=== PATIENT | male | born 1970 | race Caucasian/White ===

== ENCOUNTER 2019-12-17 17:51 | Emergency (ER) | payer MEDICAID ==
[~2019-12-17 17:51] MED LIST: CLIN150C2 PO; HYDR-4353 PO; IBUP-812 PO; LISI-222 PO; METH500T PO; NO HOME MEDS
== END 2019-12-17 19:15 | disposition left against medical advice (07) ==
LOC: ER 17:52
DX: K92.1 Melena (principal); Z53.21 Procedure and treatment not carried out due to patient leaving prior to being seen by health care provider

== ENCOUNTER 2019-12-19 04:23 | Emergency (ER) | payer BC, MEDICAID ==
[~2019-12-19] VITALS: Ht 172.7 cm; Wt 86.0 kg
[2019-12-19] MEDS ORDERED: morphine 4 MG/ML inj SYRINge IV PRN (05:05)
[2019-12-19] MEDS ORDERED: normal saline 1000ML IV soln IVB ONE ×2 (05:05→06:15)
[2019-12-19] MEDS ORDERED: ondansetron/PF 4mg/2ml inj IV ONE (05:05)
[2019-12-19] MEDS ORDERED: methylnaltrexone br 12mg/0.6ml inj***SubQ only SQ ONE (06:10)
[2019-12-19 06:14] LABS: BASOPHILS # (AUTO) 0.1 X10'3 (0-0.2); BASOPHILS % (AUTO) 1.2 % (0-1); EOSINOPHILS # (AUTO) 0.3 X10'3 (0-0.9); EOSINOPHILS % (AUTO) 2.9 % (0-6); HEMATOCRIT 36.2 % (42.0-52.0); HEMOGLOBIN 12.5 g/dl (14.0-17.9); LYMPHOCYTES % (AUTO) 30.4 % (21-51); MEAN CORPUSCULAR HEMOGLOBIN 31.4 PG (27.0-31.0); MEAN CORPUSCULAR HGB CONC 34.4 g/dL (33.0-36.5); MEAN CORPUSCULAR VOLUME 91.1 FL (78-98); MEAN PLATELET VOLUME 9.7 FL (7.4-10.4); MONOCYTES # (AUTO) 0.8 X10'3 (0-0.9); MONOCYTES % (AUTO) 8.2 % (2-12); NEUTROPHILS # (AUTO) 5.6 X10'3 (1.8-7.7); NEUTROPHILS % (AUTO) 57.3 % (42-75); PLATELET COUNT 185 X10'3 (140-440); RED BLOOD COUNT 3.97 X10'6 (4.70-6.10); RED CELL DISTRIBUTION WIDTH 13.7 % (11.5-14.5); WHITE BLOOD COUNT 9.8 X10'3 (4.5-11.0)
[2019-12-19 06:30] LABS: ALANINE AMINOTRANSFERASE 23 U/L (12-78); ALBUMIN 3.8 G/DL (3.4-5.0); ALBUMIN/GLOBULIN RATIO 1.1 (1.1-1.5); ALKALINE PHOSPHATASE 81 IU/L (46-116); ANION GAP 8 (8-16); ASPARTATE AMINO TRANSFERASE 14 U/L (10-37); BILIRUBIN,TOTAL 0.2 MG/DL (0.1-1.0); BLOOD UREA NITROGEN 16 MG/DL (7-18); BUN/CREATININE RATIO 17.6 (5.4-32.0); CALCIUM 8.9 MG/DL (8.5-10.1); CHLORIDE 109 MMOL/L (99-107); CREATININE 0.91 MG/DL (0.60-1.10); GLUCOSE 93 MG/DL (70-104); LIPASE 117 U/L (73-393); POTASSIUM 3.9 MMOL/L (3.5-5.1); SODIUM 143 MMOL/L (135-145); TOTAL CARBON DIOXIDE 26.1 MMOL/L (24-32); TOTAL PROTEIN 7.3 G/DL (6.4-8.2); eGFR 89 ML/MIN
[2019-12-19] MEDS ORDERED: CIPR-230 PO (06:38)
[2019-12-19] MEDS ORDERED: METR-159 PO (06:38)
[2019-12-19 07:07] VITALS: BP 134/93
[2019-12-19 11:30] LABS: OCCULT BLOOD STOOL NEGATIVE (Neg)
== END 2019-12-19 07:08 | disposition home or self-care (01) ==
LOC: ER 04:23
DX: K59.00 Constipation, unspecified (principal); K62.5 Hemorrhage of anus and rectum; I25.10 Atherosclerotic heart disease of native coronary artery without angina pectoris; I10 Essential (primary) hypertension; I25.2 Old myocardial infarction; Z98.890 Other specified postprocedural states; Z88.6 Allergy status to analgesic agent; Z79.899 Other long term (current) drug therapy
CPT/HCPCS: 36415; 74176; 80053; 82272; 83690; 85025; 96372; 96374; 96375; 99284; J2212; J2270; J2405; J7030

== ENCOUNTER 2020-03-10 12:23 | Emergency (ER) | payer BC, MEDICAID ==
[~2020-03-10] VITALS: Ht 172.7 cm; Wt 90.0 kg
[2020-03-10] MEDS ORDERED: PRED20TA PO (13:05)
[2020-03-10] MEDS ORDERED: HYDR28CR14 TOP (13:05)
[2020-03-10 13:11] VITALS: BP 128/88
== END 2020-03-10 13:12 | disposition home or self-care (01) ==
LOC: ER 12:23
DX: L23.9 Allergic contact dermatitis, unspecified cause (principal); R21 Rash and other nonspecific skin eruption; I25.10 Atherosclerotic heart disease of native coronary artery without angina pectoris; I10 Essential (primary) hypertension; I25.2 Old myocardial infarction; Z98.890 Other specified postprocedural states; Z88.6 Allergy status to analgesic agent; Z79.2 Long term (current) use of antibiotics; Z79.899 Other long term (current) drug therapy
CPT/HCPCS: 99283

== ENCOUNTER 2020-10-08 13:11 | Emergency (ER) | payer BC, MEDICAID ==
[~2020-10-08] VITALS: Ht 172.7 cm; Wt 84.7 kg
[~2020-10-08 13:11] MED LIST changes: +HYDR28CR14 TOP
[2020-10-08 13:19] VITALS: BP 158/111
[2020-10-08] MEDS ORDERED: ketorolac tromethamine 15mg/ml inj. IM ONE (14:35)
[2020-10-08] MEDS ORDERED: HYDR-4383 PO (15:28)
[2020-10-08] MEDS ORDERED: ONDA4TAB6 PO (15:28)
== END 2020-10-08 15:38 | disposition home or self-care (01) ==
LOC: ER 13:11
DX: S20.212A Contusion of left front wall of thorax, initial encounter (principal); I25.10 Atherosclerotic heart disease of native coronary artery without angina pectoris; I10 Essential (primary) hypertension; Z98.890 Other specified postprocedural states; Z79.2 Long term (current) use of antibiotics; Z79.899 Other long term (current) drug therapy; Z88.6 Allergy status to analgesic agent; W01.0XXA Fall on same level from slipping, tripping and stumbling without subsequent striking against object, initial encounter; Y93.89 Activity, other specified; Y92.89 Other specified places as the place of occurrence of the external cause; Y99.8 Other external cause status
CPT/HCPCS: 71046; 96372; 99283; J1885

== ENCOUNTER 2021-01-20 12:29 | Inpatient (IN) | payer BC, MEDICAID ==
[2021-01-20] VITALS (8 sets, daily range): BP systolic 128–172; BP diastolic 89–116
[~2021-01-20] VITALS: Ht 172.7 cm; Wt 84.5 kg
[~2021-01-20 12:29] MED LIST changes: +HYDR-4383 PO; +ONDA4TAB6 PO
--- NOTE | 2021-01-20 13:20 | NUR ---
DR. CHOI AT BEDSIDE.
[2021-01-20 13:28] LABS: BASOPHILS # (AUTO) 0.1 X10'3 (0-0.2); BASOPHILS % (AUTO) 1.3 % (0-1); EOSINOPHILS # (AUTO) 0.3 X10'3 (0-0.9); EOSINOPHILS % (AUTO) 4.2 % (0-6); HEMATOCRIT 41.4 % (42.0-52.0); HEMOGLOBIN 13.9 g/dl (14.0-17.9); LYMPHOCYTES # (AUTO) 2.3 X10'3 (1.1-4.8); LYMPHOCYTES % (AUTO) 35.2 % (21-51); MEAN CORPUSCULAR HEMOGLOBIN 31.1 PG (27.0-31.0); MEAN CORPUSCULAR HGB CONC 33.5 g/dL (33.0-36.5); MEAN CORPUSCULAR VOLUME 92.9 FL (78-98); MEAN PLATELET VOLUME 9.3 FL (7.4-10.4); MONOCYTES # (AUTO) 0.7 X10'3 (0-0.9); MONOCYTES % (AUTO) 9.9 % (2-12); NEUTROPHILS # (AUTO) 3.3 X10'3 (1.8-7.7); NEUTROPHILS % (AUTO) 49.4 % (42-75); PLATELET COUNT 221 X10'3 (140-440); RED BLOOD COUNT 4.46 X10'6 (4.70-6.10); RED CELL DISTRIBUTION WIDTH 13.4 % (11.5-14.5); WHITE BLOOD COUNT 6.7 X10'3 (4.5-11.0)
[2021-01-20] MEDS ORDERED: heparin 10,000 units/1 ML INJ IV ONE ×2 (13:30→13:35)
[2021-01-20] MEDS ORDERED: aspirin 81mg tab.chew PO ONE (13:30)
[2021-01-20] MEDS ORDERED: acetaminophen 325mg tablet PO ONE (13:35)
[2021-01-20 13:41] LABS: ALANINE AMINOTRANSFERASE 59 U/L (12-78); ALBUMIN/GLOBULIN RATIO 1.1 (1.1-1.5); ALKALINE PHOSPHATASE 111 IU/L (46-116); ANION GAP 14 (8-16); ASPARTATE AMINO TRANSFERASE 40 U/L (10-37); BILIRUBIN,TOTAL 0.2 MG/DL (0.1-1.0); BLOOD UREA NITROGEN 12 MG/DL (7-18); BUN/CREATININE RATIO 12.4 (5.4-32.0); CALCIUM 9.2 MG/DL (8.5-10.1); CHLORIDE 104 MMOL/L (99-107); CREATININE 0.97 MG/DL (0.60-1.10); GLUCOSE 96 MG/DL (70-104); POTASSIUM 4.1 MMOL/L (3.5-5.1); SODIUM 142 MMOL/L (135-145); TOTAL PROTEIN 7.7 G/DL (6.4-8.2); eGFR 82 ML/MIN
[2021-01-20 13:48] LABS: PARTIAL THROMBOPLASTIN TIME 23 SECONDS (22-32)
[2021-01-20] MEDS: nitroGLYCERIN 0.4mg SUBLingual tab SL PRN ×2 (14:03→14:13)
[2021-01-20] MEDS ORDERED: heparin 10,000 units/1 ML INJ IV PRN (14:10)
[2021-01-20] MEDS ORDERED: heparin 25,000 UNIT/250ml bag 250 ML IV SCH (14:10)
--- NOTE | 2021-01-20 14:11 | NUR ---
PT REPORTS NO CHANGE IN CP AFTER FIRST NITRO SL.
[2021-01-20] MEDS ORDERED: LISI40TA13 PO (14:18)
[2021-01-20] MEDS ORDERED: morphine 10mg/ml inj. IV ONE ×2 (14:40→15:50)
[2021-01-20] MEDS ORDERED: magnesium 4gm in 100ml NS 100 ML IV PRN (15:55)
[2021-01-20] MEDS ORDERED: potassium Cl 20 mEq SR tablet PO PRN ×2 (15:55)
[2021-01-20] MEDS ORDERED: potassium Cl 40MEQ/1/2NS 520ml 520 ML IV PRN ×2 (15:55)
[2021-01-20] MEDS ORDERED: HYDROcodone/acetaminophen 5mg/325mg tablet PO PRN ×2 (15:55→20:00)
[2021-01-20] MEDS ORDERED: magnesium 2GM in 50ml NS 50 ML IV PRN (15:55)
[2021-01-20] MEDS ORDERED: magnesium Cl slow-release 64mg tablet PO PRN (15:55)
[2021-01-20] MEDS ORDERED: ondansetron/PF 4mg/2ml inj IV PRN ×2 (15:55→20:00)
[2021-01-20] MEDS ORDERED: acetaminophen 325mg tablet PO PRN (15:55)
--- NOTE | 2021-01-20 17:02 | NUR ---
PTT ORDERED FOR 2100
[2021-01-20] MEDS: morphine 2 MG/ML inj. syringe IV PRN (17:28)
--- NOTE | 2021-01-20 17:30 | NUR ---
Patient arrived to floor vitals temp 98, BP 138/104, HR 80, RR 18, O2 96% RA , pain 8. dental lab technician notified of BP no orders
[2021-01-20] MEDS ORDERED: nitroGLYCERIN-Tridil 50MG/D5W 250 ML IV ONE (17:51)
[2021-01-20] MEDS ORDERED: midazolam 1 mg/ML 2ml injection ONE ×3 (17:51→18:41)
[2021-01-20] MEDS ORDERED: verapamil 2.5 mg/ml inj IV ONE (17:51)
[2021-01-20] MEDS ORDERED: iohexol 350MG/ML 100ml bottle IV ONE ×2 (17:52→18:54)
[2021-01-20] MEDS ORDERED: LIDOcaine 1% (10mg/ml)w/preservative injection 20ml MDV ONE (17:52)
[2021-01-20] MEDS ORDERED: fentaNYL/PF 50MCG/1 ML 2ML syringe ONE (17:52)
[2021-01-20] MEDS ORDERED: heparin 1,000unit/ml 10ml vial 10 ML ONE (17:52)
--- NOTE | 2021-01-20 18:00 | NUR ---
Patient in room PCU 3023. I have received report from Jamilah VILLANUEVA and had the opportunity to ask questions and assume patient care. Shortly the patient was taken to label maker.
--- NOTE | 2021-01-20 18:27 | NUR ---
Problems reprioritized. Patient report given, questions answered & plan of care reviewed with Melba VILLANUEVA.
[2021-01-20] MEDS ORDERED: ticagrelor 90mg tablet ONE (19:16)
[2021-01-20] MEDS: K and/or MAG REPLACEMENT MC SCH (20:00)
[2021-01-20] MEDS ORDERED: OXAZEpam 15mg capsule PO PRN (20:00)
[2021-01-20] MEDS ORDERED: nitroGLYCERIN 0.4mg SUBLingual tab SL PRN (20:00)
[2021-01-20] MEDS ORDERED: proCHLORperazine 10 MG/2 ml inj IV PRN (20:00)
[2021-01-20] MEDS ORDERED: ticagrelor 90mg tablet PO SCH (20:00)
[2021-01-21] MEDS: morphine 2 MG/ML inj. syringe IV PRN (00:27)
[2021-01-21 02:00] VITALS: BP 166/100
[2021-01-21] MEDS: HYDROcodone/acetaminophen 10/325mg tab PO PRN ×2 (03:16→07:19)
--- NOTE | 2021-01-21 06:20 | NUR ---
Patient in room PCU 3023. I have received report from Oriana VILLANUEVA and had the opportunity to ask questions and assume patient care.
--- NOTE | 2021-01-21 06:24 | NUR ---
Problems reprioritized. Patient report given, questions answered & plan of care reviewed with Anshu VILLANUEVA.
--- NOTE | 2021-01-21 06:28 | NUR ---
Patient in room PCU 3023. I have received report from KAY Johnson and had the opportunity to ask questions and assume patient care.
[2021-01-21 06:50] LABS: ALBUMIN 3.5 G/DL (3.4-5.0); ANION GAP 9 (8-16); BLOOD UREA NITROGEN 15 MG/DL (7-18); BUN/CREATININE RATIO 16.5 (5.4-32.0); CHLORIDE 106 MMOL/L (99-107); CREATININE 0.91 MG/DL (0.60-1.10); GLUCOSE 99 MG/DL (70-104); POTASSIUM 4.3 MMOL/L (3.5-5.1); SODIUM 141 MMOL/L (135-145); TOTAL CARBON DIOXIDE 26.3 MMOL/L (24-32); eGFR 89 ML/MIN
[2021-01-21 06:54] LABS: BASOPHILS # (AUTO) 0.1 X10'3 (0-0.2); BASOPHILS % (AUTO) 1.4 % (0-1); EOSINOPHILS # (AUTO) 0.3 X10'3 (0-0.9); EOSINOPHILS % (AUTO) 4.4 % (0-6); HEMATOCRIT 39.6 % (42.0-52.0); HEMOGLOBIN 13.4 g/dl (14.0-17.9); LYMPHOCYTES # (AUTO) 1.8 X10'3 (1.1-4.8); LYMPHOCYTES % (AUTO) 31.2 % (21-51); MEAN CORPUSCULAR HEMOGLOBIN 31.5 PG (27.0-31.0); MEAN CORPUSCULAR VOLUME 92.7 FL (78-98); MEAN PLATELET VOLUME 9.2 FL (7.4-10.4); MONOCYTES # (AUTO) 0.6 X10'3 (0-0.9); MONOCYTES % (AUTO) 10.7 % (2-12); NEUTROPHILS % (AUTO) 52.3 % (42-75); PLATELET COUNT 196 X10'3 (140-440); RED BLOOD COUNT 4.27 X10'6 (4.70-6.10); RED CELL DISTRIBUTION WIDTH 13.2 % (11.5-14.5); WHITE BLOOD COUNT 5.8 X10'3 (4.5-11.0)
[2021-01-21 07:00] VITALS: BP 155/112
[2021-01-21] MEDS: K and/or MAG REPLACEMENT MC SCH (07:58)
[2021-01-21] MEDS ORDERED: aspirin 81mg tablet.DR PO SCH (08:00)
[2021-01-21] MEDS ORDERED: lisinopril 20mg tablet PO SCH (08:00)
[2021-01-21] MEDS ORDERED: ticagrelor 90mg tablet PO SCH (08:00)
[2021-01-21 11:00] VITALS: BP 140/91
[2021-01-21] MEDS ORDERED: metoprolol tartrate 12.5mg (1/2 tablet) PO SCH (12:00)
[2021-01-21] MEDS ORDERED: LOP25T PO (12:07)
[2021-01-21] MEDS ORDERED: TICA90TA PO (12:07)
[2021-01-21] MEDS ORDERED: BEMP180T PO (12:07)
[2021-01-21 12:15] LABS: CHOLESTEROL 232 MG/DL (0-200); HDL CHOLESTEROL 33 MG/DL (35-60); LDL CHOLESTEROL 127 MG/DL (50-100); TRIGLYCERIDES 399 MG/DL (20-135)
[2021-01-21 12:20] VITALS: BP_SYST 140
--- NOTE | 2021-01-21 13:20 | NUR ---
Patient is stable for discharge per MD orders. All discharge instructions reviewed with patient and all questions answered. Patient will make follow-up appointment with PCP and mate fishing vessel. New prescriptions called in to pharmacy. PIV discontinued, cannula intact. traffic monitor specialist discontinued. All belongings collected and sent with patient. Patient was wheeled to lobby, accompanied by daughter. Patient was put into private vehicle.
--- NOTE | 2021-01-21 13:20 | NUR ---
Orientee documentation: I have reviewed and agree with all interventions, assessments performed and documented by David Macias RN.
--- NOTE | 2021-01-22 15:18 | NUR ---
CASE MANAGEMENT DISCHARGE FOLLOW UP: T/c to pt, no answer, left message requesting callback.
== END 2021-01-21 13:24 | disposition home or self-care (01) | DRG 247 ==
LOC: ER 12:30 → ED HOLD 15:53 → PCU 3S 17:05
PROVIDERS: ADMIT Internal Medicine; ATTEND Internal Medicine
PROC: 4A023N7 Measurement of Cardiac Sampling and Pressure, Left Heart, Percutaneous Approach (ICD-10-PCS; principal; 2021-01-20)
PROC: 027035Z Dilation of Coronary Artery, One Artery with Two Drug-eluting Intraluminal Devices, Percutaneous Approach (ICD-10-PCS; 2021-01-20)
PROC: B2111ZZ Fluoroscopy of Multiple Coronary Arteries using Low Osmolar Contrast (ICD-10-PCS; 2021-01-20)
PROC: B2151ZZ Fluoroscopy of Left Heart using Low Osmolar Contrast (ICD-10-PCS; 2021-01-20)
DX: I21.4 Non-ST elevation (NSTEMI) myocardial infarction (principal); K50.90 Crohn's disease, unspecified, without complications; I10 Essential (primary) hypertension; E78.5 Hyperlipidemia, unspecified; I25.2 Old myocardial infarction; Z82.49 Family history of ischemic heart disease and other diseases of the circulatory system; Z95.5 Presence of coronary angioplasty implant and graft; I25.10 Atherosclerotic heart disease of native coronary artery without angina pectoris
CPT/HCPCS: 93306; 93458; 96365; 96375; 99291; C9600; 36415; 71045; 80048; 80053; 80061; 83735; 83880; 84484; 85025; 85610; 85730; 87081; 93005; 93308; 99152; 99153; A4620; C1725; C1751; C1769; C1874; C1894; G0378; J1644; J2001; J2250; J2270; J3010; J3490; J7030; Q9967

== ENCOUNTER 2021-01-27 09:55 | Inpatient (IN) | payer BC, MEDICAID ==
[2021-01-27] VITALS (14 sets, daily range): BP systolic 112–184; BP diastolic 66–118
[~2021-01-27] VITALS: Ht 175.3 cm; Wt 89.8 kg
[~2021-01-27 09:55] MED LIST changes: +BEMP180T PO; -CLIN150C2 PO; -HYDR-4353 PO; -HYDR-4383 PO; -HYDR28CR14 TOP; -IBUP-812 PO; -LISI-222 PO; +LISI40TA13 PO; +LOP25T PO; -METH500T PO; -NO HOME MEDS; -ONDA4TAB6 PO; +TICA90TA PO
[2021-01-27] MEDS ORDERED: morphine 4 MG/ML inj SYRINge IV ONE ×2 (10:05→13:45)
[2021-01-27] MEDS ORDERED: morphine 4 MG/ML inj SYRINge IM ONE (10:05)
[2021-01-27 10:13] LABS: BASOPHILS # (AUTO) 0.1 X10'3 (0-0.2); BASOPHILS % (AUTO) 0.6 % (0-1); EOSINOPHILS # (AUTO) 0.3 X10'3 (0-0.9); EOSINOPHILS % (AUTO) 1.3 % (0-6); HEMATOCRIT 48.3 % (42.0-52.0); HEMOGLOBIN 16.1 g/dl (14.0-17.9); LYMPHOCYTES % (AUTO) 13.3 % (21-51); MEAN CORPUSCULAR HEMOGLOBIN 31.1 PG (27.0-31.0); MEAN CORPUSCULAR HGB CONC 33.3 g/dL (33.0-36.5); MEAN CORPUSCULAR VOLUME 93.2 FL (78-98); MEAN PLATELET VOLUME 9.5 FL (7.4-10.4); MONOCYTES # (AUTO) 1.9 X10'3 (0-0.9); MONOCYTES % (AUTO) 8.2 % (2-12); NEUTROPHILS # (AUTO) 17.3 X10'3 (1.8-7.7); NEUTROPHILS % (AUTO) 76.6 % (42-75); PLATELET COUNT 311 X10'3 (140-440); RED BLOOD COUNT 5.18 X10'6 (4.70-6.10); RED CELL DISTRIBUTION WIDTH 13.3 % (11.5-14.5); WHITE BLOOD COUNT 22.6 X10'3 (4.5-11.0)
[2021-01-27] MEDS ORDERED: midazolam 1 mg/ML 2ml injection ONE (10:13)
[2021-01-27] MEDS ORDERED: iohexol 350 MG/ML 50ML vial IV ONE ×2 (10:13→11:16)
[2021-01-27] MEDS ORDERED: heparin 1,000unit/ml 10ml vial 10 ML ONE (10:13)
[2021-01-27] MEDS ORDERED: LIDOcaine 1% (10mg/ml)w/preservative injection 20ml MDV ONE ×2 (10:13→15:05)
[2021-01-27] MEDS ORDERED: iohexol 350 MG/1 ML 200ml bottle ONE ×2 (10:13→10:54)
[2021-01-27] MEDS ORDERED: fentaNYL/PF 50MCG/1 ML 2ML syringe ONE (10:13)
[2021-01-27] MEDS ORDERED: nitroGLYCERIN-Tridil 50MG/D5W 250 ML IV ONE (10:14)
[2021-01-27 10:26] LABS: PARTIAL THROMBOPLASTIN TIME 24 SECONDS (22-32)
[2021-01-27 10:29] LABS: ALANINE AMINOTRANSFERASE 102 U/L (12-78); ALBUMIN 4.5 G/DL (3.4-5.0); ALBUMIN/GLOBULIN RATIO 1.1 (1.1-1.5); ALKALINE PHOSPHATASE 120 IU/L (46-116); ANION GAP 17 (8-16); ASPARTATE AMINO TRANSFERASE 36 U/L (10-37); BILIRUBIN,TOTAL 0.4 MG/DL (0.1-1.0); BLOOD UREA NITROGEN 24 MG/DL (7-18); BUN/CREATININE RATIO 16.6 (5.4-32.0); CALCIUM 10.4 MG/DL (8.5-10.1); CHLORIDE 101 MMOL/L (99-107); CREATININE 1.45 MG/DL (0.60-1.10); GLUCOSE 163 MG/DL (70-104); SODIUM 140 MMOL/L (135-145); TOTAL CARBON DIOXIDE 22.4 MMOL/L (24-32); TOTAL PROTEIN 8.6 G/DL (6.4-8.2); eGFR 52 ML/MIN
[2021-01-27 10:36] LABS: MAGNESIUM 2.3 MG/DL (1.5-2.4)
[2021-01-27 10:44] LABS: POTASSIUM 3.8 MMOL/L (3.5-5.1)
[2021-01-27] MEDS ORDERED: metoprolol tartrate 1mg/ml inj IV ONE ×2 (10:46→20:10)
[2021-01-27] MEDS ORDERED: tirofiban 5mg in NS 100mL 100 ML IV ONE ×2 (10:54→13:46)
[2021-01-27] MEDS ORDERED: ondansetron/PF 4mg/2ml inj ONE (10:55)
[2021-01-27] MEDS ORDERED: ticagrelor 90mg tablet ONE (11:32)
[2021-01-27] MEDS ORDERED: normal saline 1000ml 1,000 ML IV SCH (12:10)
[2021-01-27] MEDS ORDERED: acetaminophen 325mg tablet PO PRN ×2 (12:15)
[2021-01-27] MEDS ORDERED: HYDROcodone/acetaminophen 10/325mg tab PO PRN (12:15)
[2021-01-27] MEDS ORDERED: proCHLORperazine 10 MG/2 ml inj IV PRN (12:15)
[2021-01-27] MEDS ORDERED: aspirin 81mg tab.chew PO ONE (12:15)
[2021-01-27] MEDS ORDERED: magnesium hydroxide 30ml (MOM) UD suspension PO PRN (12:15)
[2021-01-27] MEDS: lisinopril 5mg tablet PO SCH (12:21)
[2021-01-27] MEDS: HYDROcodone/acetaminophen 10/325mg tab PO PRN ×3 (12:24→20:38)
--- NOTE | 2021-01-27 12:40 | NUR ---
Received pt. from cardiac cath lab technologist at 1200. Right groin sheath in place. Pt. to have ACT drawn and sheath pulled at 1500. Heparin to turn off at 1500.
[2021-01-27] MEDS: OXAZEpam 15mg capsule PO PRN ×2 (12:59→22:44)
--- NOTE | 2021-01-27 14:34 | NUR ---
Dr. Tran saw pt. earlier. Stated to have pt.s home "statin" medicine brought in and he will order it to be given. Dr. Osuna called. RN notified him of WBC count, Troponin critical value and BUN/Cr. Orders received.
[2021-01-27] MEDS: acetylcysteine 200 MG/ml 4ml vial PO SCH ×2 (15:06→20:25)
[2021-01-27] MEDS: cyclobenzaprine 10mg tablet PO PRN (15:06)
[2021-01-27] MEDS: sodium bicarbonate (8.4%) inj. 75 MEQ in sodium chloride 0.45% 500ml 500 ML IV SCH ×2 (15:06→20:20)
--- NOTE | 2021-01-27 15:19 | NUR ---
[facility] cardiac cath lab technologist nurse here to perform ACT and pull right groin sheath is ACT is WNL.
[2021-01-27 16:15] LABS: PLATELET FUNCTION (ADP) > 300 SECONDS (63-104)
[2021-01-27] MEDS ORDERED: BEMP180T PO (16:38)
[2021-01-27 17:03] LABS: CLARITY,URINE CLEAR (Clear); COLOR,URINE YELLOW (Yellow); GLUCOSE, URINE NEGATIVE (Neg); KETONES,URINE NEGATIVE (Neg); LEUKOCYTE ESTERASE ,URINE NEGATIVE (Neg); NITRITES, URINE NEGATIVE (Neg); OCCULT BLOOD,URINE NEGATIVE (Neg); PROTEIN,URINE NEGATIVE (Neg); UROBILINOGEN,URINE 0.2 E.U/dL (0.2-1.0)
--- NOTE | 2021-01-27 17:05 | NUR ---
Pt. threatening to leave AMA since his is not allowed to stay with him in the hospital. Charge nurse aware. Nursing supervisor telephone clerks Mary Carmen aware. Security here. Dr. Osuna paged to let him know. Message left with answering service.
[2021-01-27 17:08] LABS: UA COLLECTION TYPE NON-SPECIFIED
--- NOTE | 2021-01-27 17:12 | NUR ---
left stating "you guys really care about pt's feelings." Dr. Tran aware of situation.
--- NOTE | 2021-01-27 17:44 | NUR ---
Spoke with Dr. Osuna. Aware that pt. was threatening to leave AMA but ended up staying here. Aware of sheath pulled and hemostasis at right groin. Orders received for Restoril and Ativan.
[2021-01-27] MEDS: LORazepam 2 mg/ml vial IV PRN (17:58)
--- NOTE | 2021-01-27 18:14 | NUR ---
Problems reprioritized. Patient report given, questions answered & plan of care reviewed with Alexandra VILLANUEVA.
[2021-01-27] MEDS ORDERED: tirofiban 5mg in NS 100mL 100 ML IV SCH (18:15)
--- NOTE | 2021-01-27 18:30 | NUR ---
Patient in room ICU 2046. I have received report from Marie VILLANUEVA and had the opportunity to ask questions and assume patient care. Addendum: 01/27/21 at 2100 by Alexandra Szymanski RN Amended: Links added.
--- NOTE | 2021-01-27 18:46 | NUR ---
Dr. Osuna notified of patient's increased chest pain and hypertension. Orders received, EKG obtained.
[2021-01-27] MEDS ORDERED: nitroGLYCERIN-Tridil 50MG/D5W 250 ML IV PRN (18:50)
[2021-01-27] MEDS: morphine 2 MG/ML inj. syringe IV PRN ×2 (19:12→22:43)
[2021-01-27] MEDS: docusate sod 100mg capsule PO SCH (20:00)
[2021-01-27] MEDS ORDERED: morphine 2 MG/ML inj. syringe IV ONE (20:10)
--- NOTE | 2021-01-27 20:10 | NUR ---
Patient Sinus tach in the 140's. Dr. Osuna at bedside. Orders received.
[2021-01-27] MEDS: BEMPEDOIC ACID 180 MG PO SCH (20:25)
[2021-01-27] MEDS: atorvastatin 20mg tablet PO SCH (20:26)
[2021-01-27] MEDS: ticagrelor 90mg tablet PO SCH (20:37)
[2021-01-27] MEDS: temazepam 15mg capsule PO PRN (21:42)
[2021-01-28] VITALS (20 sets, daily range): BP systolic 96–143; BP diastolic 61–93
[2021-01-28] MEDS: metoprolol tartrate 1mg/ml inj IV PRN ×3 (01:36→22:22)
[2021-01-28] MEDS: sodium bicarbonate (8.4%) inj. 75 MEQ in sodium chloride 0.45% 500ml 500 ML IV SCH ×2 (02:05→03:39)
--- NOTE | 2021-01-28 03:25 | NUR ---
HR decreased p/Metoprolol. Patient appears to be sleeping. Will continue to monitor closely.
[2021-01-28] MEDS: HYDROcodone/acetaminophen 10/325mg tab PO PRN (03:40)
[2021-01-28 04:52] LABS: BASOPHILS # (AUTO) 0.1 X10'3 (0-0.2); BASOPHILS % (AUTO) 0.6 % (0-1); EOSINOPHILS % (AUTO) 0.2 % (0-6); HEMATOCRIT 39.8 % (42.0-52.0); HEMOGLOBIN 13.5 g/dl (14.0-17.9); LYMPHOCYTES # (AUTO) 2.3 X10'3 (1.1-4.8); LYMPHOCYTES % (AUTO) 16.3 % (21-51); MEAN CORPUSCULAR HEMOGLOBIN 30.9 PG (27.0-31.0); MEAN CORPUSCULAR VOLUME 90.9 FL (78-98); MONOCYTES # (AUTO) 1.4 X10'3 (0-0.9); MONOCYTES % (AUTO) 10.3 % (2-12); NEUTROPHILS # (AUTO) 10.1 X10'3 (1.8-7.7); NEUTROPHILS % (AUTO) 72.6 % (42-75); PLATELET COUNT 253 X10'3 (140-440); RED BLOOD COUNT 4.38 X10'6 (4.70-6.10); RED CELL DISTRIBUTION WIDTH 13.6 % (11.5-14.5); WHITE BLOOD COUNT 13.9 X10'3 (4.5-11.0)
[2021-01-28 05:07] LABS: ALBUMIN 3.5 G/DL (3.4-5.0); ANION GAP 13 (8-16); BLOOD UREA NITROGEN 18 MG/DL (7-18); BUN/CREATININE RATIO 16.8 (5.4-32.0); CALCIUM 8.5 MG/DL (8.5-10.1); CHLORIDE 103 MMOL/L (99-107); CREATININE 1.07 MG/DL (0.60-1.10); GLUCOSE 139 MG/DL (70-104); MAGNESIUM 1.9 MG/DL (1.5-2.4); POTASSIUM 3.9 MMOL/L (3.5-5.1); SODIUM 139 MMOL/L (135-145); TOTAL CARBON DIOXIDE 22.8 MMOL/L (24-32); eGFR 73 ML/MIN
[2021-01-28 05:09] LABS: TROPONIN I 33.57 NG/ML (0.0-0.05)
--- NOTE | 2021-01-28 06:24 | NUR ---
Problems reprioritized. Patient report given, questions answered & plan of care reviewed with Domonique VILLANUEVA.
--- NOTE | 2021-01-28 06:30 | NUR ---
Patient in room ICU 2046. I have received report from Alexandra VILLANUEVA and had the opportunity to ask questions and assume patient care.
[2021-01-28] MEDS: morphine 2 MG/ML inj. syringe IV PRN ×5 (06:53→20:42)
[2021-01-28] MEDS: acetylcysteine 200 MG/ml 4ml vial PO SCH ×2 (07:55→20:35)
[2021-01-28] MEDS: aspirin 81mg tab.chew PO SCH (07:55)
[2021-01-28] MEDS: ticagrelor 90mg tablet PO SCH ×2 (07:55→20:32)
[2021-01-28] MEDS: lisinopril 5mg tablet PO SCH (07:58)
[2021-01-28] MEDS: BEMPEDOIC ACID 180 MG PO SCH (08:00)
[2021-01-28] MEDS: docusate sod 100mg capsule PO SCH ×2 (08:00→20:40)
--- NOTE | 2021-01-28 09:00 | NUR ---
patient calm and sleeping. minimal complaints of pain.
--- NOTE | 2021-01-28 09:15 | NUR ---
patient's SBP in the 90s, titrated tridil drip down to off. Pt complaining of chest pain, SUPERVISORY EXAMINER at bedside. tridil dirp and sodium bicarbonate drip discontinued. New orders received.
[2021-01-28] MEDS: LORazepam 2 mg/ml vial IV PRN ×3 (09:18→23:03)
[2021-01-28] MEDS ORDERED: pneumococcal 23-VAL P-sac vacc 25 mcg/0.5ml vial IMVAC ONE (10:00)
[2021-01-28] MEDS ORDERED: LOP12.5T PO (11:29)
[2021-01-28] MEDS ORDERED: TICA90TA2 PO (11:29)
[2021-01-28] MEDS: OXAZEpam 15mg capsule PO PRN (13:51)
[2021-01-28] MEDS: cyclobenzaprine 10mg tablet PO PRN (14:43)
--- NOTE | 2021-01-28 14:50 | NUR ---
pt complaining of chest pain 7/10 morphine given. an hour later pain was slightly relieved. patient given norco and serax. 12 lead EKG performed. STEFANI Belle took EKG to geophysical laboratory director.
--- NOTE | 2021-01-28 15:00 | NUR ---
notified charge entry specialist and flexeril given.
--- NOTE | 2021-01-28 15:00 | NUR ---
patient has become more worked up and agitated since is at bedside. patient is more distressed and having more complaints of chest pain that is unrelieved from morphine, and norco. animal humane agent supervisor aware and Barbra STEAM OVEN OPERATOR aware.
[2021-01-28] MEDS ORDERED: HYDROmorphone inj. 0.5 MG/0.5 ML DISP.SYRIN IV ONE (15:05)
--- NOTE | 2021-01-28 15:46 | NUR ---
Report called to receiving nurseCesilia. Transferred via wheel chair with all Belongings: cell phone and hadoop admin. Special Issues communicated to receiving nurse.
--- NOTE | 2021-01-28 15:54 | NUR ---
Received report on patient. Pending patient to unit.
--- NOTE | 2021-01-28 16:06 | NUR ---
pt transferred to rm 308 with all belongings via wheel chair; VSS.
--- NOTE | 2021-01-28 16:21 | NUR ---
Report received from KAY Martinez - pt was able to transfer without assistance from W/C to bed. No c/o pain at this time. Monitoring.
--- NOTE | 2021-01-28 17:24 | NUR ---
Shift note: Pt is alert and oriented and can make his needs be known. Pt was able to transfer from W/C to bed when brought up from ICU. Pt still C/O chest pain but not as bad as before. HR still in 120's - PRN ativan administered with relief. Safety measures in place, bed in lowest position, call light within reach. Will continue to monitor until report given to NOC shift and NOC shift assumes care.
--- NOTE | 2021-01-28 18:40 | NUR ---
Patient in room MED 308. I have received report from Cesilia VILLANUEVA and had the opportunity to ask questions and assume patient care with Josue VILLANUEVA.
--- NOTE | 2021-01-28 18:42 | NUR ---
Problems reprioritized. Patient report given, questions answered & plan of care reviewed with Flaquito RN.
--- NOTE | 2021-01-28 19:20 | NUR ---
Dr. Recinos called regarding blood in stool Spoke with Dr. Jose Recinos regarding occult blood in stool. Doctor ordered stool sample to be collected and to continue Brillinta.
[2021-01-28] MEDS: metoprolol tartrate 25mg tablet PO SCH (20:32)
[2021-01-28] MEDS: atorvastatin 20mg tablet PO SCH (20:32)
[2021-01-29] MEDS: morphine 2 MG/ML inj. syringe IV PRN ×8 (00:20→19:49)
[2021-01-29 01:53] LABS: OCCULT BLOOD STOOL POSITIVE (Neg)
[2021-01-29 02:00] VITALS: BP 127/85
[2021-01-29 06:00] VITALS: BP 121/92
--- NOTE | 2021-01-29 06:00 | NUR ---
ORIENTEE documentation: I have reviewed and agree with all interventions, assessments performed and documented by AYSHA VILLANUEVA.
--- NOTE | 2021-01-29 06:10 | NUR ---
Patient in room MED 308. I have received report from KAY Jackson and had the opportunity to ask questions and assume patient care.
--- NOTE | 2021-01-29 06:10 | NUR ---
Problems reprioritized. Patient report given, questions answered & plan of care reviewed with Cesilia VILLANUEVA.
--- NOTE | 2021-01-29 06:14 | NUR ---
Patient in room MED 308. I have received report from KAY Jackson and had the opportunity to ask questions and assume patient care.
[2021-01-29] MEDS: docusate sod 100mg capsule PO SCH ×2 (07:45→19:48)
[2021-01-29] MEDS: LORazepam 2 mg/ml vial IV PRN (07:55)
[2021-01-29] MEDS: aspirin 81mg tab.chew PO SCH (07:56)
[2021-01-29] MEDS: lisinopril 10 MG tablet PO SCH (07:56)
[2021-01-29] MEDS: metoprolol tartrate 25mg tablet PO SCH ×2 (07:57→19:48)
[2021-01-29] MEDS: ticagrelor 90mg tablet PO SCH ×2 (07:57→19:48)
[2021-01-29] MEDS: acetylcysteine 200 MG/ml 4ml vial PO SCH ×2 (07:58→19:49)
[2021-01-29] MEDS: BEMPEDOIC ACID 180 MG PO SCH (08:02)
[2021-01-29 09:14] LABS: ALBUMIN 3.5 G/DL (3.4-5.0); ANION GAP 10 (8-16); BLOOD UREA NITROGEN 14 MG/DL (7-18); BUN/CREATININE RATIO 15.1 (5.4-32.0); CALCIUM 9.1 MG/DL (8.5-10.1); CHLORIDE 104 MMOL/L (99-107); CREATININE 0.93 MG/DL (0.60-1.10); GLUCOSE 121 MG/DL (70-104); SODIUM 140 MMOL/L (135-145); eGFR 86 ML/MIN
[2021-01-29 09:17] LABS: BASOPHILS # (AUTO) 0.1 X10'3 (0-0.2); BASOPHILS % (AUTO) 0.6 % (0-1); EOSINOPHILS # (AUTO) 0.2 X10'3 (0-0.9); EOSINOPHILS % (AUTO) 1.4 % (0-6); HEMATOCRIT 37.8 % (42.0-52.0); HEMOGLOBIN 12.7 g/dl (14.0-17.9); LYMPHOCYTES # (AUTO) 1.9 X10'3 (1.1-4.8); LYMPHOCYTES % (AUTO) 12.9 % (21-51); MEAN CORPUSCULAR HEMOGLOBIN 30.9 PG (27.0-31.0); MEAN CORPUSCULAR HGB CONC 33.7 g/dL (33.0-36.5); MEAN CORPUSCULAR VOLUME 91.8 FL (78-98); MEAN PLATELET VOLUME 9.4 FL (7.4-10.4); MONOCYTES # (AUTO) 1.4 X10'3 (0-0.9); MONOCYTES % (AUTO) 9.4 % (2-12); NEUTROPHILS # (AUTO) 11.2 X10'3 (1.8-7.7); NEUTROPHILS % (AUTO) 75.7 % (42-75); PLATELET COUNT 207 X10'3 (140-440); RED BLOOD COUNT 4.12 X10'6 (4.70-6.10); RED CELL DISTRIBUTION WIDTH 13.1 % (11.5-14.5); WHITE BLOOD COUNT 14.9 X10'3 (4.5-11.0)
[2021-01-29 10:00] VITALS: BP 93/55
[2021-01-29] MEDS ORDERED: NITR0.4T51 SL (10:40)
--- NOTE | 2021-01-29 12:24 | NUR ---
Pt was able to take a shower. Right groin dressing removed - replaced with bandAid. CDI.
[2021-01-29] MEDS: HYDROcodone/acetaminophen 10/325mg tab PO PRN ×2 (13:27→22:20)
--- NOTE | 2021-01-29 13:49 | NUR ---
PAGER ID: [phone] MESSAGE: Re: Lex Pappas Room 308. Need cardiac clearing and prep ordered if pt going for colonoscopy. Thanks, Cesilia [phone]
[2021-01-29 14:00] VITALS: BP 125/85
--- NOTE | 2021-01-29 14:37 | NUR ---
Paged Chinyere Escalera Re: Lex Pappas 308. Thanh wants a colonoscopy but needs cardiac clearing first. Please advise. Thanks
--- NOTE | 2021-01-29 14:42 | NUR ---
Received call from Chinyere Escalera NP - she advised he is cleared, "he had his stents, he is cleared". Called Angelika in GI lab. She will get with Thanh for orders.
[2021-01-29] MEDS ORDERED: PEG 3350/Na sulf,bicarb,Cl/KCl oral sol 4 liter bottle PO ONE (15:00)
[2021-01-29 18:00] VITALS: BP 114/75
--- NOTE | 2021-01-29 18:16 | NUR ---
Problems reprioritized. Patient report given, questions answered & plan of care reviewed with KAY Jackson.
--- NOTE | 2021-01-29 18:16 | NUR ---
Patient in room MED 308. I have received report from Cesilia VILLANUEVA and had the opportunity to ask questions and assume patient care with Josue VILLANUEVA
[2021-01-29] MEDS: atorvastatin 20mg tablet PO SCH (21:35)
[2021-01-29 22:00] VITALS: BP 121/82
[2021-01-30] MEDS: morphine 2 MG/ML inj. syringe IV PRN ×7 (00:58→20:01)
[2021-01-30 02:00] VITALS: BP 100/65
[2021-01-30] MEDS: HYDROcodone/acetaminophen 10/325mg tab PO PRN (04:38)
[2021-01-30 06:00] VITALS: BP 110/72
--- NOTE | 2021-01-30 06:05 | NUR ---
Patient in room MED 308. I have received report from KAY Jackson and had the opportunity to ask questions and assume patient care.
--- NOTE | 2021-01-30 06:14 | NUR ---
Problems reprioritized. Patient report given, questions answered & plan of care reviewed with Cesilia VILLANUEVA.
[2021-01-30] MEDS: BEMPEDOIC ACID 180 MG PO SCH (07:57)
[2021-01-30] MEDS: aspirin 81mg tab.chew PO SCH (07:58)
[2021-01-30] MEDS: lisinopril 10 MG tablet PO SCH (07:58)
[2021-01-30] MEDS: metoprolol tartrate 25mg tablet PO SCH ×2 (07:58→19:58)
[2021-01-30] MEDS: ticagrelor 90mg tablet PO SCH ×2 (07:58→19:56)
[2021-01-30] MEDS: acetylcysteine 200 MG/ml 4ml vial PO SCH (08:00)
[2021-01-30] MEDS: docusate sod 100mg capsule PO SCH ×2 (08:00→19:58)
[2021-01-30] MEDS ORDERED: PEG 3350/Na sulf,bicarb,Cl/KCl oral sol 4 liter bottle PO ONE (08:40)
[2021-01-30 10:00] VITALS: BP 115/76
[2021-01-30 10:05] LABS: BASOPHILS # (AUTO) 0.1 X10'3 (0-0.2); BASOPHILS % (AUTO) 0.7 % (0-1); EOSINOPHILS # (AUTO) 0.3 X10'3 (0-0.9); EOSINOPHILS % (AUTO) 2.4 % (0-6); HEMATOCRIT 35.6 % (42.0-52.0); LYMPHOCYTES # (AUTO) 2.3 X10'3 (1.1-4.8); MEAN CORPUSCULAR HEMOGLOBIN 31.1 PG (27.0-31.0); MEAN CORPUSCULAR HGB CONC 33.8 g/dL (33.0-36.5); MEAN CORPUSCULAR VOLUME 91.8 FL (78-98); MEAN PLATELET VOLUME 9.3 FL (7.4-10.4); MONOCYTES % (AUTO) 8.8 % (2-12); NEUTROPHILS # (AUTO) 7.9 X10'3 (1.8-7.7); NEUTROPHILS % (AUTO) 68.1 % (42-75); PLATELET COUNT 199 X10'3 (140-440); RED BLOOD COUNT 3.88 X10'6 (4.70-6.10); RED CELL DISTRIBUTION WIDTH 13.3 % (11.5-14.5); WHITE BLOOD COUNT 11.6 X10'3 (4.5-11.0)
[2021-01-30 10:15] LABS: ALBUMIN 3.2 G/DL (3.4-5.0); ANION GAP 10 (8-16); BLOOD UREA NITROGEN 19 MG/DL (7-18); BUN/CREATININE RATIO 20.9 (5.4-32.0); CALCIUM 8.6 MG/DL (8.5-10.1); CHLORIDE 103 MMOL/L (99-107); CREATININE 0.91 MG/DL (0.60-1.10); GLUCOSE 95 MG/DL (70-104); SODIUM 140 MMOL/L (135-145); TOTAL CARBON DIOXIDE 26.8 MMOL/L (24-32); eGFR 89 ML/MIN
--- NOTE | 2021-01-30 10:22 | NUR ---
IT help desk ticket # [id number] Morphine pulled out of omni @ [id number] - scanned around 0750'kourtney. emar does NOT show scanned. IT opened ticket. spoke with Domingo.
[2021-01-30 14:00] VITALS: BP 114/82
--- NOTE | 2021-01-30 16:03 | NUR ---
Spoke with Angelika in GI - ok to continue clear liquid diet - if patient gets hungry; hot broth or hot jello helps with hunger. has to be hot. Colonoscopy will be done tomorrow around 1100. No need to keep NPO.
[2021-01-30 18:00] VITALS: BP 135/97
--- NOTE | 2021-01-30 18:42 | NUR ---
Problems reprioritized. Patient report given, questions answered & plan of care reviewed with KAY Estes.
--- NOTE | 2021-01-30 18:45 | NUR ---
Patient in room MED 308. I have received report from Cesilia VILLANUEVA and had the opportunity to ask questions and assume patient care.
[2021-01-30 22:00] VITALS: BP 116/73
[2021-01-30] MEDS: temazepam 15mg capsule PO PRN (22:30)
[2021-01-30] MEDS: LORazepam 2 mg/ml vial IV PRN (22:36)
[2021-01-31] VITALS (7 sets, daily range): BP systolic 118–155; BP diastolic 88–104
[2021-01-31] MEDS: morphine 2 MG/ML inj. syringe IV PRN ×3 (02:00→09:01)
--- NOTE | 2021-01-31 06:21 | NUR ---
Problems reprioritized. Patient report given, questions answered & plan of care reviewed with Alphonse VILLANUEVA.
[2021-01-31 07:26] LABS: BASOPHILS # (AUTO) 0.1 X10'3 (0-0.2); BASOPHILS % (AUTO) 0.8 % (0-1); EOSINOPHILS # (AUTO) 0.2 X10'3 (0-0.9); EOSINOPHILS % (AUTO) 2.4 % (0-6); HEMATOCRIT 38.2 % (42.0-52.0); HEMOGLOBIN 13.3 g/dl (14.0-17.9); LYMPHOCYTES # (AUTO) 2.1 X10'3 (1.1-4.8); LYMPHOCYTES % (AUTO) 22.1 % (21-51); MEAN CORPUSCULAR HEMOGLOBIN 31.7 PG (27.0-31.0); MEAN CORPUSCULAR HGB CONC 34.7 g/dL (33.0-36.5); MEAN CORPUSCULAR VOLUME 91.3 FL (78-98); MEAN PLATELET VOLUME 9.7 FL (7.4-10.4); MONOCYTES # (AUTO) 0.9 X10'3 (0-0.9); MONOCYTES % (AUTO) 9.2 % (2-12); NEUTROPHILS # (AUTO) 6.3 X10'3 (1.8-7.7); NEUTROPHILS % (AUTO) 65.5 % (42-75); PLATELET COUNT 237 X10'3 (140-440); RED BLOOD COUNT 4.18 X10'6 (4.70-6.10); RED CELL DISTRIBUTION WIDTH 12.8 % (11.5-14.5); WHITE BLOOD COUNT 9.6 X10'3 (4.5-11.0)
[2021-01-31 08:24] LABS: ALBUMIN 3.6 G/DL (3.4-5.0); ANION GAP 15 (8-16); BLOOD UREA NITROGEN 15 MG/DL (7-18); BUN/CREATININE RATIO 18.3 (5.4-32.0); CALCIUM 9.5 MG/DL (8.5-10.1); CHLORIDE 104 MMOL/L (99-107); CREATININE 0.82 MG/DL (0.60-1.10); GLUCOSE 86 MG/DL (70-104); POTASSIUM 3.5 MMOL/L (3.5-5.1); SODIUM 143 MMOL/L (135-145); TOTAL CARBON DIOXIDE 24.4 MMOL/L (24-32); eGFR > 90 ML/MIN
[2021-01-31] MEDS: lisinopril 10 MG tablet PO SCH (08:25)
[2021-01-31] MEDS: aspirin 81mg tab.chew PO SCH (08:25)
[2021-01-31] MEDS: ticagrelor 90mg tablet PO SCH (08:26)
[2021-01-31] MEDS: metoprolol tartrate 25mg tablet PO SCH (08:26)
[2021-01-31] MEDS: docusate sod 100mg capsule PO SCH (08:26)
[2021-01-31] MEDS: BEMPEDOIC ACID 180 MG PO SCH (08:26)
[2021-01-31] MEDS: OXAZEpam 15mg capsule PO PRN (10:32)
[2021-01-31] MEDS ORDERED: MIDAZolam 1 MG/ML 5ML VIAL ONE (12:20)
[2021-01-31] MEDS ORDERED: fentaNYL/PF 50MCG/1 ML 2ML syringe ONE ×2 (12:20→13:16)
[2021-01-31] MEDS ORDERED: ASPI81TA53 PO (15:09)
== END 2021-01-31 15:55 | disposition home or self-care (01) | DRG 247 ==
LOC: ER 09:56 → ICU 2S 12:25 → UNDOADMIN 12:25 → ICU 2S 01-28 16:15 → MED 3N 01-28 16:15
PROVIDERS: ADMIT Internal Medicine Cardiovascular Disease; ATTEND Internal Medicine Cardiovascular Disease
PROC: 027035Z Dilation of Coronary Artery, One Artery with Two Drug-eluting Intraluminal Devices, Percutaneous Approach (ICD-10-PCS; principal; 2021-01-30)
PROC: 4A023N7 Measurement of Cardiac Sampling and Pressure, Left Heart, Percutaneous Approach (ICD-10-PCS; 2021-01-30)
PROC: B2151ZZ Fluoroscopy of Left Heart using Low Osmolar Contrast (ICD-10-PCS; 2021-01-30)
PROC: B2111ZZ Fluoroscopy of Multiple Coronary Arteries using Low Osmolar Contrast (ICD-10-PCS; 2021-01-30)
DX: I21.3 ST elevation (STEMI) myocardial infarction of unspecified site (principal); D72.829 Elevated white blood cell count, unspecified; E78.5 Hyperlipidemia, unspecified; F41.9 Anxiety disorder, unspecified; I10 Essential (primary) hypertension; I25.10 Atherosclerotic heart disease of native coronary artery without angina pectoris; I25.2 Old myocardial infarction; Z79.82 Long term (current) use of aspirin; Z82.49 Family history of ischemic heart disease and other diseases of the circulatory system; Z88.8 Allergy status to other drugs, medicaments and biological substances; Z95.5 Presence of coronary angioplasty implant and graft; Z79.899 Other long term (current) drug therapy; Z80.3 Family history of malignant neoplasm of breast
CPT/HCPCS: 45380; 45385; 93458; 96374; 99285; C9606; 36415; 71045; 76937; 80048; 80053; 81003; 82272; 83735; 83880; 84145; 84484; 85025; 85347; 85576; 85610; 85730; 86885; 86900; 86901; 87081; 90732; 93005; 99152; 99153; A4620; A6258; A6449; C1725; C1751; C1760; C1769; C1773; C1874; C1894; G0378; J0780; J1170; J1644; J2001; J2060; J2250; J2270; J2405; J3010; J3246; J3490; J7040; Q9967

== ENCOUNTER 2021-02-13 07:52 | Inpatient (IN) | payer BC, MEDICAID ==
[~2021-02-13] VITALS: Ht 172.7 cm; Wt 88.6 kg
[~2021-02-13 07:52] MED LIST changes: +ASPI81TA53 PO; +LOP12.5T PO; -LOP25T PO; +NITR0.4T51 SL; -TICA90TA PO; +TICA90TA2 PO
--- NOTE | 2021-02-13 08:07 | NUR ---
FELIZ AT BS WITH PT. [phone]
[2021-02-13] MEDS ORDERED: morphine 10mg/ml inj. IV ONE (08:15)
[2021-02-13] MEDS ORDERED: morphine 2 MG/ML inj. syringe IV ONE (08:15)
[2021-02-13 08:16] LABS: BASOPHILS # (AUTO) 0.1 X10'3 (0-0.2); BASOPHILS % (AUTO) 1.5 % (0-1); EOSINOPHILS # (AUTO) 0.3 X10'3 (0-0.9); EOSINOPHILS % (AUTO) 3.4 % (0-6); HEMATOCRIT 28.2 % (42.0-52.0); LYMPHOCYTES # (AUTO) 4.1 X10'3 (1.1-4.8); LYMPHOCYTES % (AUTO) 43.6 % (21-51); MEAN CORPUSCULAR HEMOGLOBIN 32.7 PG (27.0-31.0); MEAN CORPUSCULAR HGB CONC 35.3 g/dL (33.0-36.5); MEAN CORPUSCULAR VOLUME 92.8 FL (78-98); MEAN PLATELET VOLUME 9.5 FL (7.4-10.4); MONOCYTES # (AUTO) 0.6 X10'3 (0-0.9); MONOCYTES % (AUTO) 6.7 % (2-12); NEUTROPHILS # (AUTO) 4.2 X10'3 (1.8-7.7); NEUTROPHILS % (AUTO) 44.8 % (42-75); PLATELET COUNT 293 X10'3 (140-440); RED BLOOD COUNT 3.04 X10'6 (4.70-6.10); RED CELL DISTRIBUTION WIDTH 13.3 % (11.5-14.5); WHITE BLOOD COUNT 9.4 X10'3 (4.5-11.0)
[2021-02-13 08:34] LABS: PARTIAL THROMBOPLASTIN TIME 21 SECONDS (22-32)
[2021-02-13 08:37] LABS: ALANINE AMINOTRANSFERASE 34 U/L (12-78); ALBUMIN 3.6 G/DL (3.4-5.0); ALBUMIN/GLOBULIN RATIO 1.1 (1.1-1.5); ALKALINE PHOSPHATASE 84 IU/L (46-116); ANION GAP 12 (8-16); ASPARTATE AMINO TRANSFERASE 19 U/L (10-37); BILIRUBIN,TOTAL 0.2 MG/DL (0.1-1.0); BLOOD UREA NITROGEN 26 MG/DL (7-18); BUN/CREATININE RATIO 22.2 (5.4-32.0); CALCIUM 8.6 MG/DL (8.5-10.1); CHLORIDE 107 MMOL/L (99-107); CREATININE 1.17 MG/DL (0.60-1.10); GLUCOSE 128 MG/DL (70-104); POTASSIUM 4.1 MMOL/L (3.5-5.1); SODIUM 142 MMOL/L (135-145); TOTAL CARBON DIOXIDE 23.1 MMOL/L (24-32); TOTAL PROTEIN 6.9 G/DL (6.4-8.2); eGFR 66 ML/MIN
[2021-02-13] MEDS ORDERED: pantoprazole 40 MG vial IV ONE ×3 (08:45→09:00)
[2021-02-13] MEDS ORDERED: ondansetron/PF 4mg/2ml inj IV ONE (08:45)
[2021-02-13] MEDS ORDERED: iohexol 300mg/ml 100ml inj. ONE (08:52)
[2021-02-13] MEDS ORDERED: morphine 4 MG/ML inj SYRINge IV ONE (09:00)
[2021-02-13] MEDS ORDERED: iohexol 350MG/ML 100ml bottle IV ONE (09:24)
[2021-02-13] MEDS ORDERED: NITR0.4T51 SL (09:43)
[2021-02-13] MEDS ORDERED: ASPI-611 PO (09:43)
[2021-02-13] MEDS ORDERED: HYDROmorphone 1 mg/ml syringe IV ONE (11:15)
[2021-02-13] MEDS ORDERED: potassium Cl 40MEQ/1/2NS 520ml 520 ML IV PRN ×2 (11:25)
[2021-02-13] MEDS ORDERED: HYDROmorphone inj. 0.5 MG/0.5 ML DISP.SYRIN IV PRN ×2 (11:25→15:50)
[2021-02-13] MEDS ORDERED: acetaminophen 325mg tablet PO PRN (11:25)
[2021-02-13] MEDS ORDERED: magnesium hydroxide 30ml (MOM) UD suspension PO PRN (11:25)
[2021-02-13] MEDS ORDERED: HYDROcodone/acetaminophen 5mg/325mg tablet PO PRN (11:25)
[2021-02-13] MEDS ORDERED: potassium Cl 20 mEq SR tablet PO PRN ×2 (11:25)
[2021-02-13] MEDS ORDERED: magnesium 2GM in 50ml NS 50 ML IV PRN (11:25)
[2021-02-13] MEDS ORDERED: magnesium Cl slow-release 64mg tablet PO PRN (11:25)
[2021-02-13] MEDS ORDERED: mag hydrox/Alum hydrox/simeth 30ml oral suspension PO PRN (11:25)
[2021-02-13] MEDS ORDERED: magnesium 4gm in 100ml NS 100 ML IV PRN (11:25)
[2021-02-13] MEDS: normal saline 1000ml 1,000 ML IV SCH ×2 (11:34→16:30)
[2021-02-13] MEDS: ticagrelor 90mg tablet PO SCH ×2 (11:44→19:55)
[2021-02-13] MEDS ORDERED: nitroGLYCERIN 0.4mg SUBLingual tab SL PRN (11:55)
[2021-02-13] MEDS ORDERED: aspirin 325mg tablet PO ONE (12:00)
[2021-02-13] MEDS: HYDROcodone/acetaminophen 10/325mg tab PO PRN ×2 (13:35→16:38)
--- NOTE | 2021-02-13 15:14 | NUR ---
BP 91/58MMHG,GIVEN 250 NS BOLUS,BP RECHECKED 94/58MMHG,PATIENT ASYMPTOMATIC,KHLOE VILLANUEVA AT BEDSIDE.
[2021-02-13] MEDS ORDERED: normal saline 1000ml 1,000 ML IV ONE (15:55)
[2021-02-13] MEDS ORDERED: HYDROmorphone 1 mg/ml syringe IV PRN (15:58)
[2021-02-13] MEDS: ondansetron/PF 4mg/2ml inj IV PRN (16:38)
[2021-02-13 17:13] LABS: HEMATOCRIT 23.3 % (42.0-52.0); HEMOGLOBIN 8.2 g/dl (14.0-17.9); MEAN CORPUSCULAR HEMOGLOBIN 32.7 PG (27.0-31.0); MEAN CORPUSCULAR HGB CONC 35.2 g/dL (33.0-36.5); MEAN CORPUSCULAR VOLUME 92.9 FL (78-98); MEAN PLATELET VOLUME 9.4 FL (7.4-10.4); PLATELET COUNT 221 X10'3 (140-440); RED BLOOD COUNT 2.51 X10'6 (4.70-6.10); RED CELL DISTRIBUTION WIDTH 13.2 % (11.5-14.5); WHITE BLOOD COUNT 8.8 X10'3 (4.5-11.0)
--- NOTE | 2021-02-13 17:54 | NUR ---
spoke to dr fischer re: pt BP 96/63 and hgb/hct 8.2/23.2 and continued pain, he states change pain meds to percocet and q2h on dilaudid
[2021-02-13] MEDS: HYDROmorphone 1 mg/ml syringe IV PRN ×3 (18:09→23:04)
[2021-02-13] MEDS: K and/or MAG REPLACEMENT MC SCH (19:43)
[2021-02-13] MEDS: metoprolol tartrate 25mg tablet PO SCH (19:44)
[2021-02-13] MEDS ORDERED: ticagrelor 90mg tablet PO SCH (20:00)
[2021-02-13] MEDS ORDERED: oxyCODONE/APAP 5-325mg tablet PO PRN (20:00)
[2021-02-13] MEDS ORDERED: temazepam 15mg capsule PO PRN (21:00)
--- NOTE | 2021-02-13 22:30 | NUR ---
BP 123/82. PT A&OX4. KATYAWAYNE VANN. IS ON HOSPITAL BED. REPORTS PAIN IN INCREASING TO 8 OUT OF 10 TO L ABD. PT UPDATED OF AVAIL PAIN MEDS (DILAUDID AND PERCOCET)
[2021-02-13 22:31] LABS: HEMATOCRIT 22.4 % (42.0-52.0); HEMOGLOBIN 7.8 g/dl (14.0-17.9); MEAN CORPUSCULAR HEMOGLOBIN 32.2 PG (27.0-31.0); MEAN CORPUSCULAR HGB CONC 34.6 g/dL (33.0-36.5); MEAN CORPUSCULAR VOLUME 93.3 FL (78-98); MEAN PLATELET VOLUME 9.4 FL (7.4-10.4); PLATELET COUNT 199 X10'3 (140-440); RED BLOOD COUNT 2.41 X10'6 (4.70-6.10); RED CELL DISTRIBUTION WIDTH 13.1 % (11.5-14.5); WHITE BLOOD COUNT 8.7 X10'3 (4.5-11.0)
[2021-02-14] MEDS ORDERED: oxyCODONE/APAP 5-325mg tablet PO PRN (00:50)
[2021-02-14] MEDS: HYDROmorphone 1 mg/ml syringe IV PRN (01:21)
--- NOTE | 2021-02-14 01:35 | NUR ---
dr coello called to update the pt having a lot of pain that is minimally managed with percocet and dialudid prn. verbal received for dialudid supervisor detasseling crew. Also updated of last hbg 7.8 and that next drawn hemogram due at 4 am. ok at this time with this lab result.
[2021-02-14] MEDS ORDERED: naloxone 0.4 mg/ml inj IV PRN (01:55)
[2021-02-14] MEDS ORDERED: CADD PCA waste documentation MC PRN (01:55)
[2021-02-14] MEDS ORDERED: HYDROmorphone/NS 1 mg/ml CADD 50 ML IV SCH (03:00)
[2021-02-14] MEDS: HYDROmorphone/NS 1 mg/ml CADD 50 ML IV SCH ×11 (03:14→23:00)
--- NOTE | 2021-02-14 03:35 | NUR ---
DILAUDID SCRUB WOMAN NOW SET UP AND PT INSTRUCTED ON USE. SET UP BOLUS OF 0.2 GIVEN. PT FEELS LIKE HE WILL NEED TO HAVE BM "SOON" AND STATES HE WILL USE CALL LIGHT WHEN READY. STATES FEELING VERY BLOATED.
[2021-02-14] MEDS: normal saline 1000ml 1,000 ML IV SCH ×3 (04:25→19:34)
[2021-02-14 04:39] LABS: HEMOGLOBIN 7.3 g/dl (14.0-17.9); MEAN CORPUSCULAR HGB CONC 34.8 g/dL (33.0-36.5); MEAN CORPUSCULAR VOLUME 92.1 FL (78-98); MEAN PLATELET VOLUME 9.6 FL (7.4-10.4); PLATELET COUNT 183 X10'3 (140-440); RED BLOOD COUNT 2.28 X10'6 (4.70-6.10); RED CELL DISTRIBUTION WIDTH 13.1 % (11.5-14.5)
--- NOTE | 2021-02-14 04:43 | NUR ---
AM LABS AND HEMOGRAM DRAWN. HGB 7.3/HCT 21. DOWN FROM 7.[address] VALLES CALLED AND UPDATED OF RESULT. HE REPORTS PT WILL HAVE TRANSFUSION IF BELOW 7.0. NEXT DRAWN DUE AT 8 AM
[2021-02-14 05:01] LABS: ALANINE AMINOTRANSFERASE 29 U/L (12-78); ALBUMIN 2.9 G/DL (3.4-5.0); ALKALINE PHOSPHATASE 70 IU/L (46-116); ANION GAP 9 (8-16); ASPARTATE AMINO TRANSFERASE 15 U/L (10-37); BILIRUBIN,TOTAL 0.2 MG/DL (0.1-1.0); BLOOD UREA NITROGEN 15 MG/DL (7-18); BUN/CREATININE RATIO 16.9 (5.4-32.0); CALCIUM 7.8 MG/DL (8.5-10.1); CHLORIDE 107 MMOL/L (99-107); CREATININE 0.89 MG/DL (0.60-1.10); GLUCOSE 104 MG/DL (70-104); MAGNESIUM 1.7 MG/DL (1.5-2.4); POTASSIUM 3.8 MMOL/L (3.5-5.1); SODIUM 140 MMOL/L (135-145); TOTAL CARBON DIOXIDE 23.9 MMOL/L (24-32); TOTAL PROTEIN 5.7 G/DL (6.4-8.2); eGFR > 90 ML/MIN
[2021-02-14] MEDS: acetaminophen 325mg tablet PO PRN (06:13)
--- NOTE | 2021-02-14 07:21 | NUR ---
MANAGER WEALTH MANAGEMENT pump verified by Ramses Garcia RN & Kesha Sanchez RN
--- NOTE | 2021-02-14 07:30 | NUR ---
Paged Dr Francois to call regarding pt's meds.
[2021-02-14] MEDS: K and/or MAG REPLACEMENT MC SCH ×2 (08:00→20:00)
[2021-02-14] MEDS: NEXLETOL PO SCH (08:00)
--- NOTE | 2021-02-14 08:16 | NUR ---
Pt denies any needs at this time.
--- NOTE | 2021-02-14 08:21 | NUR ---
Paged Dr Francois regarding pt's meds.
--- NOTE | 2021-02-14 08:27 | NUR ---
Dr Francois aware that the pt has Brilinta and Aspirin ordered and wants pt to have them. Let Dr Francois know about the pt's headache from hitting his head really hard when he passed out yesterday. Dr Francois is going to order a head CT and a unit of blood.
--- NOTE | 2021-02-14 08:59 | NUR ---
Paged Dr Francois to come sign the blood consent
[2021-02-14] MEDS: aspirin 81mg tab.chew PO SCH (09:08)
[2021-02-14] MEDS: ticagrelor 90mg tablet PO SCH ×2 (09:09→19:34)
[2021-02-14] MEDS: metoprolol tartrate 25mg tablet PO SCH ×2 (09:09→19:34)
[2021-02-14] MEDS: pantoprazole 40 MG vial IV SCH (09:09)
[2021-02-14 09:54] LABS: MEAN CORPUSCULAR HEMOGLOBIN 32.2 PG (27.0-31.0); MEAN CORPUSCULAR HGB CONC 34.6 g/dL (33.0-36.5); MEAN CORPUSCULAR VOLUME 93.2 FL (78-98); MEAN PLATELET VOLUME 9.4 FL (7.4-10.4); PLATELET COUNT 169 X10'3 (140-440); RED BLOOD COUNT 2.18 X10'6 (4.70-6.10)
[2021-02-14 09:57] LABS: HEMATOCRIT 20.3 % (42.0-52.0)
[2021-02-14] MEDS: ondansetron/PF 4mg/2ml inj IV PRN ×2 (10:40→16:10)
[2021-02-14 11:03] VITALS: BP 121/79
[2021-02-14 12:45] VITALS: BP 122/71
[2021-02-14 15:00] VITALS: BP 114/83
[2021-02-14 16:32] LABS: HEMATOCRIT 24.6 % (42.0-52.0); HEMOGLOBIN 8.5 g/dl (14.0-17.9); MEAN CORPUSCULAR HEMOGLOBIN 31.7 PG (27.0-31.0); MEAN CORPUSCULAR HGB CONC 34.8 g/dL (33.0-36.5); MEAN CORPUSCULAR VOLUME 91.1 FL (78-98); MEAN PLATELET VOLUME 9.4 FL (7.4-10.4); PLATELET COUNT 170 X10'3 (140-440); RED CELL DISTRIBUTION WIDTH 13.3 % (11.5-14.5); WHITE BLOOD COUNT 6.3 X10'3 (4.5-11.0)
[2021-02-14 18:00] VITALS: BP 125/83
[2021-02-14 21:20] LABS: HEMATOCRIT 22.7 % (42.0-52.0); HEMOGLOBIN 7.9 g/dl (14.0-17.9); MEAN CORPUSCULAR HGB CONC 34.9 g/dL (33.0-36.5); MEAN CORPUSCULAR VOLUME 91.7 FL (78-98); MEAN PLATELET VOLUME 9.4 FL (7.4-10.4); PLATELET COUNT 165 X10'3 (140-440); RED BLOOD COUNT 2.48 X10'6 (4.70-6.10); RED CELL DISTRIBUTION WIDTH 12.7 % (11.5-14.5); WHITE BLOOD COUNT 5.1 X10'3 (4.5-11.0)
[2021-02-14 22:00] VITALS: BP 136/94
[2021-02-14] MEDS: metoclopramide 5 mg/ml inj IV PRN (22:13)
[2021-02-15] MEDS: HYDROmorphone/NS 1 mg/ml CADD 50 ML IV SCH ×12 (01:00→23:00)
[2021-02-15] MEDS: normal saline 1000ml 1,000 ML IV SCH ×3 (04:19→17:08)
--- NOTE | 2021-02-15 05:46 | NUR ---
FLIGHT ENGINEER INSTRUCTOR PUMP RESIDUAL IS 30.5MLS AT THIS TIME
[2021-02-15 06:00] VITALS: BP 133/86
--- NOTE | 2021-02-15 06:37 | NUR ---
Patient in room PCU 3023. I have received report from KAY Lara and had the opportunity to ask questions and assume patient care.
[2021-02-15 06:52] LABS: HEMATOCRIT 24.7 % (42.0-52.0); HEMOGLOBIN 8.7 g/dl (14.0-17.9); MEAN CORPUSCULAR HEMOGLOBIN 31.7 PG (27.0-31.0); MEAN CORPUSCULAR HGB CONC 35.1 g/dL (33.0-36.5); MEAN CORPUSCULAR VOLUME 90.5 FL (78-98); MEAN PLATELET VOLUME 9.5 FL (7.4-10.4); PLATELET COUNT 175 X10'3 (140-440); RED BLOOD COUNT 2.73 X10'6 (4.70-6.10); RED CELL DISTRIBUTION WIDTH 13.1 % (11.5-14.5); WHITE BLOOD COUNT 6.3 X10'3 (4.5-11.0)
--- NOTE | 2021-02-15 07:00 | NUR ---
First assessment of CADD pump, settings were 0.2mg to be infused with each dose. Doses given 79/# of attempts 167, total medication infused 15.80mg, residual volume of medication in bag is 29.7ml.
[2021-02-15 07:13] LABS: ALANINE AMINOTRANSFERASE 33 U/L (12-78); ALBUMIN 3.1 G/DL (3.4-5.0); ALKALINE PHOSPHATASE 71 IU/L (46-116); ANION GAP 9 (8-16); ASPARTATE AMINO TRANSFERASE 25 U/L (10-37); BILIRUBIN,TOTAL 0.3 MG/DL (0.1-1.0); BLOOD UREA NITROGEN 8 MG/DL (7-18); CALCIUM 8.8 MG/DL (8.5-10.1); CHLORIDE 109 MMOL/L (99-107); CREATININE 0.73 MG/DL (0.60-1.10); GLUCOSE 97 MG/DL (70-104); MAGNESIUM 1.9 MG/DL (1.5-2.4); POTASSIUM 3.6 MMOL/L (3.5-5.1); SODIUM 143 MMOL/L (135-145); TOTAL CARBON DIOXIDE 25.1 MMOL/L (24-32); TOTAL PROTEIN 6.2 G/DL (6.4-8.2); eGFR > 90 ML/MIN
[2021-02-15] MEDS: K and/or MAG REPLACEMENT MC SCH ×2 (08:00→20:00)
--- NOTE | 2021-02-15 08:01 | NUR ---
Paged Vascular Re Lex Pappas Does pt have to be NPO for vascular ultrasound for intestinal ischemia? Thanks [phone]
[2021-02-15] MEDS: aspirin 81mg tab.chew PO SCH (09:29)
[2021-02-15] MEDS: pantoprazole 40 MG vial IV SCH (09:37)
[2021-02-15] MEDS: ticagrelor 90mg tablet PO SCH ×2 (10:10→19:32)
[2021-02-15] MEDS: metoprolol tartrate 25mg tablet PO SCH (10:10)
[2021-02-15] MEDS: ondansetron/PF 4mg/2ml inj IV PRN (10:12)
[2021-02-15 10:34] LABS: HEMATOCRIT 24.4 % (42.0-52.0); HEMOGLOBIN 8.6 g/dl (14.0-17.9); MEAN CORPUSCULAR HEMOGLOBIN 31.8 PG (27.0-31.0); MEAN CORPUSCULAR VOLUME 90.9 FL (78-98); MEAN PLATELET VOLUME 9.2 FL (7.4-10.4); PLATELET COUNT 180 X10'3 (140-440); RED BLOOD COUNT 2.69 X10'6 (4.70-6.10); RED CELL DISTRIBUTION WIDTH 13.1 % (11.5-14.5)
[2021-02-15 11:00] VITALS: BP 124/84
[2021-02-15] MEDS: NEXLETOL PO SCH (14:10)
[2021-02-15] MEDS ORDERED: oxyCODONE/APAP 10/325mg tablet PO PRN (14:40)
[2021-02-15] MEDS: metoclopramide 5 mg/ml inj IV PRN (14:53)
[2021-02-15 15:00] VITALS: BP 142/83
--- NOTE | 2021-02-15 15:36 | NUR ---
Paged Dr. Contreras Pappas III, Lex 2395F. Pt unable to tolerate solids,, abdominal pain and nausea after eating. Pt requested to keep CADD. Can I order a full liquid diet? Please advise Thanks Henry [phone] responded with full liquid diet and continue with CADD.
[2021-02-15 18:00] VITALS: BP 130/87
--- NOTE | 2021-02-15 18:10 | NUR ---
Orientee Medication Administration: For this medication-pass time frame, all medication were reviewed, dispensed, administered and documented per hospital policy by KAY Figueroa.
--- NOTE | 2021-02-15 18:10 | NUR ---
Orientee documentation: I have reviewed and agree with all interventions, assessments performed and documented by KAY Figueroa.
--- NOTE | 2021-02-15 18:24 | NUR ---
Problems reprioritized. Patient report given, questions answered & plan of care reviewed with KAY Maxwell. Pt sleeping comfortably at change of shift.
--- NOTE | 2021-02-15 18:24 | NUR ---
Problems reprioritized. Patient report given, questions answered & plan of care reviewed with Hans RN.
[2021-02-15 22:00] VITALS: BP 141/88
[2021-02-16] MEDS: HYDROmorphone/NS 1 mg/ml CADD 50 ML IV SCH ×10 (01:00→19:00)
[2021-02-16] MEDS: normal saline 1000ml 1,000 ML IV SCH ×2 (01:31→08:59)
[2021-02-16 02:00] VITALS: BP 135/84
--- NOTE | 2021-02-16 06:07 | NUR ---
Problems reprioritized. Patient report given, questions answered & plan of care reviewed with Kaushal.
--- NOTE | 2021-02-16 06:10 | NUR ---
Patient in room PCU 3023. I have received report from Hans VILLANUEVA and had the opportunity to ask questions and assume patient care.
--- NOTE | 2021-02-16 06:10 | NUR ---
Patient in room PCU 3023. I have received report from KAY Maxwell and had the opportunity to ask questions and assume patient care.
[2021-02-16 06:42] LABS: ALANINE AMINOTRANSFERASE 36 U/L (12-78); ALBUMIN 2.9 G/DL (3.4-5.0); ALBUMIN/GLOBULIN RATIO 0.9 (1.1-1.5); ALKALINE PHOSPHATASE 68 IU/L (46-116); ANION GAP 11 (8-16); ASPARTATE AMINO TRANSFERASE 26 U/L (10-37); BILIRUBIN,TOTAL 0.3 MG/DL (0.1-1.0); BLOOD UREA NITROGEN 9 MG/DL (7-18); BUN/CREATININE RATIO 12.3 (5.4-32.0); CALCIUM 8.6 MG/DL (8.5-10.1); CHLORIDE 108 MMOL/L (99-107); CREATININE 0.73 MG/DL (0.60-1.10); GLUCOSE 98 MG/DL (70-104); POTASSIUM 3.5 MMOL/L (3.5-5.1); SODIUM 142 MMOL/L (135-145); TOTAL CARBON DIOXIDE 23.5 MMOL/L (24-32); TOTAL PROTEIN 6.2 G/DL (6.4-8.2); eGFR > 90 ML/MIN
[2021-02-16 07:00] VITALS: BP 147/102
[2021-02-16 07:15] LABS: HEMATOCRIT 24.4 % (42.0-52.0); HEMOGLOBIN 8.5 g/dl (14.0-17.9); MEAN CORPUSCULAR HEMOGLOBIN 31.4 PG (27.0-31.0); MEAN CORPUSCULAR HGB CONC 34.8 g/dL (33.0-36.5); MEAN CORPUSCULAR VOLUME 90.2 FL (78-98); MEAN PLATELET VOLUME 9.6 FL (7.4-10.4); PLATELET COUNT 196 X10'3 (140-440); RED BLOOD COUNT 2.71 X10'6 (4.70-6.10); WHITE BLOOD COUNT 6.3 X10'3 (4.5-11.0)
[2021-02-16] MEDS: K and/or MAG REPLACEMENT MC SCH ×2 (08:00→19:42)
[2021-02-16] MEDS: aspirin 81mg tab.chew PO SCH (08:43)
[2021-02-16] MEDS: metoprolol tartrate 25mg tablet PO SCH ×2 (08:43→19:01)
[2021-02-16] MEDS: ticagrelor 90mg tablet PO SCH ×2 (08:43→19:01)
[2021-02-16] MEDS: pantoprazole 40 MG vial IV SCH (08:43)
[2021-02-16] MEDS: NEXLETOL PO SCH (08:44)
[2021-02-16 11:00] VITALS: BP 141/94
[2021-02-16 12:30] LABS: TROPONIN I < 0.04 NG/ML (0.0-0.05)
[2021-02-16 15:00] VITALS: BP 125/85
[2021-02-16 16:01] LABS: AMYLASE 42 U/L (25-115); LIPASE 141 U/L (73-393)
[2021-02-16 18:00] VITALS: BP 147/94
--- NOTE | 2021-02-16 18:40 | NUR ---
Orientee documentation: I have reviewed and agree with all interventions, assessments performed and documented by KAY Figueroa.
--- NOTE | 2021-02-16 18:41 | NUR ---
Problems reprioritized. Patient report given, questions answered & plan of care reviewed with KAY Lara. Pt laying in bed, resting comfortably at change of shift. No signs of distress.
--- NOTE | 2021-02-16 18:41 | NUR ---
Orientee Medication Administration: For this medication-pass time frame, all medication were reviewed, dispensed, administered and documented per hospital policy by KAY Figueroa.
[2021-02-16] MEDS: ondansetron/PF 4mg/2ml inj IV PRN (19:42)
[2021-02-16] MEDS: acetaminophen 325mg tablet PO PRN (19:42)
[2021-02-16 22:00] VITALS: BP 127/89
[2021-02-16] MEDS ORDERED: oxyCODONE/APAP 5-325mg tablet PO PRN (22:10)
[2021-02-16] MEDS: oxyCODONE/APAP 5-325mg tablet PO PRN (23:12)
[2021-02-17] MEDS: ondansetron/PF 4mg/2ml inj IV PRN (00:46)
[2021-02-17] MEDS: morphine 2 MG/ML inj. syringe IV PRN ×3 (00:46→09:02)
[2021-02-17 02:00] VITALS: BP 123/89
[2021-02-17] MEDS: oxyCODONE/APAP 5-325mg tablet PO PRN ×3 (03:53→11:53)
[2021-02-17 06:53] VITALS: BP 136/93
[2021-02-17 07:21] LABS: ALANINE AMINOTRANSFERASE 45 U/L (12-78); ALBUMIN 3.1 G/DL (3.4-5.0); ALBUMIN/GLOBULIN RATIO 0.9 (1.1-1.5); ALKALINE PHOSPHATASE 70 IU/L (46-116); ANION GAP 10 (8-16); ASPARTATE AMINO TRANSFERASE 33 U/L (10-37); BILIRUBIN,TOTAL 0.3 MG/DL (0.1-1.0); BLOOD UREA NITROGEN 9 MG/DL (7-18); BUN/CREATININE RATIO 12.3 (5.4-32.0); CHLORIDE 109 MMOL/L (99-107); CREATININE 0.73 MG/DL (0.60-1.10); GLUCOSE 90 MG/DL (70-104); POTASSIUM 3.5 MMOL/L (3.5-5.1); SODIUM 143 MMOL/L (135-145); TOTAL CARBON DIOXIDE 23.8 MMOL/L (24-32); TOTAL PROTEIN 6.6 G/DL (6.4-8.2); eGFR > 90 ML/MIN
[2021-02-17] MEDS: K and/or MAG REPLACEMENT MC SCH (08:00)
[2021-02-17] MEDS: pantoprazole 40 MG vial IV SCH (08:04)
[2021-02-17 08:05] VITALS: BP_SYST 140
[2021-02-17] MEDS: ticagrelor 90mg tablet PO SCH (08:05)
[2021-02-17] MEDS: aspirin 81mg tab.chew PO SCH (08:05)
[2021-02-17] MEDS: metoprolol tartrate 25mg tablet PO SCH (08:05)
[2021-02-17] MEDS: NEXLETOL PO SCH (08:05)
[2021-02-17] MEDS: normal saline 1000ml 1,000 ML IV SCH (08:08)
[2021-02-17] MEDS ORDERED: OXYC-150 PO (12:33)
[2021-02-17] MEDS ORDERED: HYDR-3965 PO (12:33)
--- NOTE | 2021-02-17 13:11 | NUR ---
PATIENT DC AT THIS TIME, PATIENT DID NOT WANT WHEELCHAIR AIR INTERCEPT CONTROLLER SUPERVISOR SO PATIENT WAS WALKED TO [facility], PATIENT ALERTX3 NO SIGNS OF DISTRESS IV TAKEN OUT AND DC INSTRUCTIONS AND RX GIVEN AND EXPLAINED IN DETAILS NO OTHER NEEDS AT THIS TIME.
--- NOTE | 2021-02-18 15:55 | NUR ---
CASE MANAGEMENT DISCHARGE FOLLOW UP: Spoke with pt via telephone. Reports that he has been taking it easy since his discharge yesterday, getting around at home okay, rates abdominal pain 610, had a tiny BM, denies flatulence, states has not been able to eat anything, tried to eat a fish sandwich yesterday and couldn't, sticking to fluids; denies CP,SOB/dyspnea, dizziness. Pt states that he is having some episodes of diaphoresis, same as when hospitalized. Admits to some hematochezia. Verbalizes understanding of s/sx requiring further evaluation/emergent assistance. Verbalizes understanding of new and current medications, states that pain medication is only helping to take the edge off of his pain, advised pt that medications can be constipating and to notify MD if unable to have BM or pass gas, he states that he will, pt aware that he may not have many BMs at this time due to not eating. Verbalizes compliance with MD discharge instructions. Verbalizes understanding of the importance in making/keeping follow-up appointments, will see PMD this Tuesday and will get referral to GI specialist as well as request follow up Hgb/Hct. States no further questions/concerns at this time.
== END 2021-02-17 13:09 | disposition home or self-care (01) | DRG 394 ==
LOC: ER 07:52 → ED HOLD 11:23 → EDBEDREQ 02-14 11:10 → PCU 3S 02-14 11:48
PROVIDERS: ADMIT Family Medicine; ATTEND Family Medicine
PROC: B4201ZZ Computerized Tomography (CT Scan) of Abdominal Aorta using Low Osmolar Contrast (ICD-10-PCS; 2021-02-13)
PROC: B4241ZZ Computerized Tomography (CT Scan) of Superior Mesenteric Artery using Low Osmolar Contrast (ICD-10-PCS; 2021-02-13)
PROC: B4281ZZ Computerized Tomography (CT Scan) of Bilateral Renal Arteries using Low Osmolar Contrast (ICD-10-PCS; 2021-02-13)
PROC: 30233N1 Transfusion of Nonautologous Red Blood Cells into Peripheral Vein, Percutaneous Approach (ICD-10-PCS; principal; 2021-02-14)
DX: K55.9 Vascular disorder of intestine, unspecified (principal); K50.90 Crohn's disease, unspecified, without complications; N17.9 Acute kidney failure, unspecified; D62 Acute posthemorrhagic anemia; E78.5 Hyperlipidemia, unspecified; F17.220 Nicotine dependence, chewing tobacco, uncomplicated; R55 Syncope and collapse; I10 Essential (primary) hypertension; I25.10 Atherosclerotic heart disease of native coronary artery without angina pectoris; I25.2 Old myocardial infarction; Z82.49 Family history of ischemic heart disease and other diseases of the circulatory system; Z95.5 Presence of coronary angioplasty implant and graft; Z88.8 Allergy status to other drugs, medicaments and biological substances
CPT/HCPCS: 36415; 36430; 70450; 71045; 72125; 74174; 80053; 82150; 83605; 83690; 83735; 83880; 84145; 84484; 85025; 85027; 85610; 85730; 86885; 86900; 86901; 86920; 87040; 87081; 93005; 93975; 96374; 96375; 99285; C9113; G0378; J1170; J2270; J2405; J2765; J7030; P9016; Q9967

== ENCOUNTER 2021-05-22 11:14 | Emergency (ER) | payer BC, MEDICAID ==
[~2021-05-22] VITALS: Ht 172.7 cm; Wt 81.8 kg
[~2021-05-22 11:14] MED LIST changes: +OXYC-150 PO
[2021-05-22 11:40] VITALS: BP 139/87
[2021-05-22] MEDS ORDERED: PENI500T2 PO (12:58)
== END 2021-05-22 13:04 | disposition home or self-care (01) ==
LOC: ER 11:16
DX: K04.7 Periapical abscess without sinus (principal); K08.89 Other specified disorders of teeth and supporting structures; I25.10 Atherosclerotic heart disease of native coronary artery without angina pectoris; I10 Essential (primary) hypertension; I25.2 Old myocardial infarction; Z98.890 Other specified postprocedural states; Z88.6 Allergy status to analgesic agent; Z88.8 Allergy status to other drugs, medicaments and biological substances; Z79.82 Long term (current) use of aspirin; Z79.899 Other long term (current) drug therapy
CPT/HCPCS: 99283

== ENCOUNTER 2021-09-09 15:50 | Inpatient (IN) | payer BC, MEDICAID ==
[~2021-09-09] VITALS: Ht 172.7 cm; Wt 84.5 kg
[2021-09-09] MEDS ORDERED: normal saline 1000ML IV soln IV ONE (16:05)
[2021-09-09 16:48] LABS: BASOPHILS # (AUTO) 0.1 X10'3 (0-0.2); BASOPHILS % (AUTO) 1.4 % (0-1); EOSINOPHILS % (AUTO) 0.4 % (0-6); HEMOGLOBIN 10.7 g/dl (14.0-17.9); LYMPHOCYTES # (AUTO) 1.4 X10'3 (1.1-4.8); MEAN CORPUSCULAR HEMOGLOBIN 32.4 PG (27.0-31.0); MEAN CORPUSCULAR HGB CONC 35.5 g/dL (33.0-36.5); MEAN CORPUSCULAR VOLUME 91.3 FL (78-98); MEAN PLATELET VOLUME 9.2 FL (7.4-10.4); MONOCYTES # (AUTO) 0.4 X10'3 (0-0.9); MONOCYTES % (AUTO) 5.4 % (2-12); NEUTROPHILS # (AUTO) 5.3 X10'3 (1.8-7.7); NEUTROPHILS % (AUTO) 73.8 % (42-75); PLATELET COUNT 295 X10'3 (140-440); RED BLOOD COUNT 3.29 X10'6 (4.70-6.10); RED CELL DISTRIBUTION WIDTH 13.7 % (11.5-14.5); WHITE BLOOD COUNT 7.1 X10'3 (4.5-11.0)
[2021-09-09 17:09] LABS: ALANINE AMINOTRANSFERASE 45 U/L (12-78); ALBUMIN 4.3 G/DL (3.4-5.0); ALBUMIN/GLOBULIN RATIO 1.1 (1.1-1.5); ALKALINE PHOSPHATASE 64 IU/L (46-116); ANION GAP 12 (8-16); ASPARTATE AMINO TRANSFERASE 24 U/L (10-37); BILIRUBIN,TOTAL 0.3 MG/DL (0.1-1.0); BLOOD UREA NITROGEN 20 MG/DL (7-18); BUN/CREATININE RATIO 19.6 (5.4-32.0); CALCIUM 9.5 MG/DL (8.5-10.1); CHLORIDE 106 MMOL/L (99-107); CREATININE 1.02 MG/DL (0.60-1.10); GLUCOSE 105 MG/DL (70-104); POTASSIUM 3.8 MMOL/L (3.5-5.1); SODIUM 143 MMOL/L (135-145); TOTAL CARBON DIOXIDE 25.3 MMOL/L (24-32); TOTAL PROTEIN 8.2 G/DL (6.4-8.2); eGFR 77 ML/MIN
[2021-09-09] MEDS ORDERED: morphine 4 MG/ML inj SYRINge IV ONE (23:30)
[2021-09-09 23:53] LABS: LIPASE 140 U/L (73-393)
[2021-09-09] MEDS ORDERED: acetaminophen 650mg rectal suppository RC PRN (23:55)
[2021-09-09] MEDS ORDERED: mag hydrox/Alum hydrox/simeth 30ml oral suspension PO PRN (23:55)
[2021-09-09] MEDS ORDERED: morphine 2 MG/ML inj. syringe IV PRN (23:55)
[2021-09-09] MEDS ORDERED: magnesium hydroxide 30ml (MOM) UD suspension PO PRN (23:55)
[2021-09-09] MEDS ORDERED: ondansetron 4mg rapidly disintigrating tab PO PRN (23:55)
[2021-09-09] MEDS ORDERED: acetaminophen 325mg tablet PO PRN ×2 (23:55)
[2021-09-09] MEDS ORDERED: HYDROmorphone inj. 0.5 MG/0.5 ML DISP.SYRIN IV PRN (23:55)
[2021-09-09] MEDS ORDERED: HYDROcodone/acetaminophen 5mg/325mg tablet PO PRN (23:55)
[2021-09-09] MEDS ORDERED: diphenhydrAMINE 50 mg/ml inj IV PRN (23:55)
[2021-09-09] MEDS ORDERED: bisacodyl 10mg suppository rectal RC PRN (23:55)
[2021-09-09] MEDS ORDERED: diphenhydrAMINE 25mg capsule PO PRN (23:55)
[2021-09-10] VITALS (17 sets, daily range): BP systolic 112–154; BP diastolic 69–92
[2021-09-10 00:17] LABS: CLARITY,URINE CLEAR (Clear); COLOR,URINE YELLOW (Yellow); GLUCOSE, URINE NEGATIVE (Neg); KETONES,URINE 40 mg/dl (Neg); LEUKOCYTE ESTERASE ,URINE NEGATIVE (Neg); NITRITES, URINE NEGATIVE (Neg); OCCULT BLOOD,URINE NEGATIVE (Neg); PROTEIN,URINE NEGATIVE (Neg); UA COLLECTION TYPE CLN CATCH MIDSTREAM; UROBILINOGEN,URINE 0.2 E.U/dL (0.2-1.0)
[2021-09-10] MEDS ORDERED: aminophylline 250mg/10ml inj. IV PRN (00:25)
[2021-09-10] MEDS ORDERED: metoprolol tartrate 1mg/ml inj IV PRN (00:25)
[2021-09-10] MEDS ORDERED: regadenoson 0.4mg/5ml syringe IV ONE (00:25)
[2021-09-10] MEDS: dextrose 5%-1/2 normal saline 1,000 ML IV SCH ×4 (00:44→17:43)
[2021-09-10] MEDS: HYDROcodone/acetaminophen 10/325mg tab PO PRN ×2 (00:45→01:51)
[2021-09-10] MEDS: ondansetron/PF 4mg/2ml inj IV PRN ×2 (00:45→11:50)
[2021-09-10] MEDS ORDERED: regadenoson 0.4mg/5ml syringe IV PRN (00:45)
[2021-09-10] MEDS: temazepam 15mg capsule PO PRN ×2 (00:45→23:50)
[2021-09-10 00:46] LABS: D-DIMER 0.23 MG/L FEU (0-0.50)
[2021-09-10 01:04] LABS: PARTIAL THROMBOPLASTIN TIME 25 SECONDS (22-32)
[2021-09-10 01:17] LABS: HEMOGLOBIN A1C 5.2 % (4.5-6.2)
[2021-09-10 01:24] LABS: MAGNESIUM 2.1 MG/DL (1.5-2.4); PHOSPHORUS 2.2 MG/DL (2.3-4.5)
[2021-09-10] MEDS: morphine 2 MG/ML inj. syringe IV PRN ×2 (02:29→23:50)
[2021-09-10] MEDS: nitroGLYCERIN 0.4mg SUBLingual tab SL PRN ×2 (02:33→04:12)
[2021-09-10] MEDS ORDERED: METO-384 PO (03:38)
[2021-09-10] MEDS ORDERED: morphine 4 MG/ML inj SYRINge IV ONE ×2 (04:05→09:20)
--- NOTE | 2021-09-10 04:05 | NUR ---
Patient wakes and complains of returning pain to abdomen. Patient is not yet due for regularly scheduled morphine. Dr. Barahona orders 4mg morphine x1 now.
--- NOTE | 2021-09-10 04:54 | NUR ---
resting quietly in bed.
[2021-09-10 04:59] LABS: BASOPHILS # (AUTO) 0.1 X10'3 (0-0.2); BASOPHILS % (AUTO) 1.3 % (0-1); EOSINOPHILS # (AUTO) 0.1 X10'3 (0-0.9); EOSINOPHILS % (AUTO) 0.8 % (0-6); HEMATOCRIT 27.4 % (42.0-52.0); HEMOGLOBIN 9.5 g/dl (14.0-17.9); LYMPHOCYTES # (AUTO) 1.8 X10'3 (1.1-4.8); LYMPHOCYTES % (AUTO) 28.2 % (21-51); MEAN CORPUSCULAR HGB CONC 34.8 g/dL (33.0-36.5); MEAN CORPUSCULAR VOLUME 91.8 FL (78-98); MEAN PLATELET VOLUME 9.4 FL (7.4-10.4); MONOCYTES # (AUTO) 0.6 X10'3 (0-0.9); NEUTROPHILS # (AUTO) 3.9 X10'3 (1.8-7.7); NEUTROPHILS % (AUTO) 59.7 % (42-75); PLATELET COUNT 218 X10'3 (140-440); RED BLOOD COUNT 2.98 X10'6 (4.70-6.10); RED CELL DISTRIBUTION WIDTH 13.9 % (11.5-14.5); WHITE BLOOD COUNT 6.5 X10'3 (4.5-11.0)
[2021-09-10 05:10] LABS: ALANINE AMINOTRANSFERASE 37 U/L (12-78); ALBUMIN 3.2 G/DL (3.4-5.0); ALKALINE PHOSPHATASE 47 IU/L (46-116); ANION GAP 9 (8-16); ASPARTATE AMINO TRANSFERASE 20 U/L (10-37); BILIRUBIN,TOTAL 0.3 MG/DL (0.1-1.0); BLOOD UREA NITROGEN 18 MG/DL (7-18); BUN/CREATININE RATIO 24.7 (5.4-32.0); CALCIUM 7.8 MG/DL (8.5-10.1); CHLORIDE 110 MMOL/L (99-107); CREATININE 0.73 MG/DL (0.60-1.10); GLUCOSE 100 MG/DL (70-104); POTASSIUM 3.4 MMOL/L (3.5-5.1); SODIUM 145 MMOL/L (135-145); TOTAL CARBON DIOXIDE 25.6 MMOL/L (24-32); TOTAL PROTEIN 6.4 G/DL (6.4-8.2); eGFR > 90 ML/MIN
[2021-09-10] MEDS ORDERED: HYDROmorphone inj. 0.5 MG/0.5 ML DISP.SYRIN IV PRN (05:55)
--- NOTE | 2021-09-10 05:57 | NUR ---
Patient complains of worsening pain and, "bubbling" in his abdomen stating that something is wrong. Phone call to Dr. Barahona who orders 0.5 dilaudid q4h prn and an abdominal CT with IV contrast. Patient updated on POC.
[2021-09-10] MEDS ORDERED: iohexol 350MG/ML 100ml bottle IV ONE (07:15)
[2021-09-10] MEDS ORDERED: FAMO40TA58 PO (07:20)
[2021-09-10] MEDS ORDERED: HYDR12.55 PO (07:20)
[2021-09-10] MEDS ORDERED: BUPR1TAB45 SL (07:20)
[2021-09-10] MEDS: ezetimibe 10mg tablet PO SCH (08:00)
[2021-09-10] MEDS: nitroGLYCERIN 0.4mg/hour patch TD SCH (08:00)
--- NOTE | 2021-09-10 08:30 | NUR ---
arrived to get pt for nuc med stress test, pt complaining of chest pain, was told he would get pain meds, notified RN. will return when pain medication is given
[2021-09-10] MEDS: metoprolol tartrate 25mg tablet PO SCH ×2 (08:37→19:45)
[2021-09-10] MEDS: docusate sod 100mg capsule PO SCH ×2 (08:37→19:42)
[2021-09-10] MEDS: heparin, porcine 5000 units/ml vial SQ SCH ×2 (08:39→19:43)
--- NOTE | 2021-09-10 08:55 | NUR ---
pt given pain medication. however, pt drank some breakfast broth and juice. called Nuc med if still ok to do test. yes, its okay. returned to pt room and Dr. Cowart with pt and evaluating medical history with pt.
--- NOTE | 2021-09-10 09:05 | NUR ---
spoke with dr. juarez, we can do the first images and then hold the stress portion, until further clearance on dr. hu/alec sr. he was agreeable to doing that.
--- NOTE | 2021-09-10 09:12 | NUR ---
i was notified by dr. juarez before leaving with pt to nuc med. to hold off on during any of the stress test. I notified nuc med.
[2021-09-10 09:16] LABS: URINE AMPHETAMINE SCREEN NEGATIVE (Neg); URINE BARBITUATE SCREEN NEGATIVE (Neg); URINE BENZODIAZEPINES SCREEN NEGATIVE (Neg); URINE CANNABINOID SCREEN NEGATIVE (Neg); URINE COCAINE SCREEN NEGATIVE (Neg); URINE METHADONE SCREEN NEGATIVE (Neg); URINE OPIATE SCREEN POSITIVE (Neg); URINE PHENCYCLIDINE SCREEN NEGATIVE (Neg)
[2021-09-10] MEDS ORDERED: HYDROmorphone inj. 0.5 MG/0.5 ML DISP.SYRIN IV ONE (09:25)
[2021-09-10] MEDS ORDERED: metoclopramide 5 mg/ml inj IV ONE (09:40)
--- NOTE | 2021-09-10 11:30 | NUR ---
was paged by [email or web address] that stress test is a go. simulation technician was with patient waited 10 mins then brought pt to [email or web address].
[2021-09-10] MEDS ORDERED: HYDROmorphone 1 mg/ml syringe IV ONE (12:00)
[2021-09-10] MEDS: HYDROmorphone 1 mg/ml syringe IV PRN ×3 (14:10→23:09)
[2021-09-10] MEDS ORDERED: nitroGLYCERIN 0.4mg SUBLingual tab SL PRN (16:35)
--- NOTE | 2021-09-10 17:10 | NUR ---
I have received report from KAY moralez and had the opportunity to ask questions and assume patient care.
--- NOTE | 2021-09-10 18:29 | NUR ---
Orientee documentation: I have reviewed and agree with all interventions, assessments performed and documented by KAY Anderson.
--- NOTE | 2021-09-10 18:35 | NUR ---
Problems reprioritized. Patient report given, questions answered & plan of care reviewed with KAY Washburn.
[2021-09-10] MEDS: ticagrelor 90mg tablet PO SCH (19:42)
[2021-09-10] MEDS: famotidine 20mg tablet PO SCH (19:42)
[2021-09-10] MEDS: buprenorphine/naloxone 2-0.5mg sublingual tablet SL SCH (20:53)
[2021-09-10] MEDS: lisinopril 20mg tablet PO SCH (20:55)
[2021-09-11] VITALS (11 sets, daily range): BP systolic 105–137; BP diastolic 65–90
[2021-09-11] MEDS: HYDROmorphone 1 mg/ml syringe IV PRN ×5 (04:15→22:57)
[2021-09-11] MEDS: ondansetron/PF 4mg/2ml inj IV PRN (04:16)
--- NOTE | 2021-09-11 06:18 | NUR ---
Problems reprioritized. Patient report given, questions answered & plan of care reviewed with KAY Lomas.
[2021-09-11 06:19] LABS: BASOPHILS # (AUTO) 0.1 X10'3 (0-0.2); EOSINOPHILS # (AUTO) 0.1 X10'3 (0-0.9); EOSINOPHILS % (AUTO) 1.5 % (0-6); HEMATOCRIT 29.4 % (42.0-52.0); HEMOGLOBIN 10.1 g/dl (14.0-17.9); LYMPHOCYTES # (AUTO) 1.8 X10'3 (1.1-4.8); LYMPHOCYTES % (AUTO) 36.6 % (21-51); MEAN CORPUSCULAR HEMOGLOBIN 31.8 PG (27.0-31.0); MEAN CORPUSCULAR HGB CONC 34.2 g/dL (33.0-36.5); MONOCYTES # (AUTO) 0.5 X10'3 (0-0.9); MONOCYTES % (AUTO) 9.9 % (2-12); NEUTROPHILS # (AUTO) 2.4 X10'3 (1.8-7.7); PLATELET COUNT 214 X10'3 (140-440); RED BLOOD COUNT 3.17 X10'6 (4.70-6.10); RED CELL DISTRIBUTION WIDTH 13.8 % (11.5-14.5); WHITE BLOOD COUNT 4.8 X10'3 (4.5-11.0)
[2021-09-11 06:36] LABS: ALANINE AMINOTRANSFERASE 28 U/L (12-78); ALBUMIN 3.3 G/DL (3.4-5.0); ALKALINE PHOSPHATASE 53 IU/L (46-116); ANION GAP 9 (8-16); ASPARTATE AMINO TRANSFERASE 24 U/L (10-37); BILIRUBIN,TOTAL 0.3 MG/DL (0.1-1.0); BLOOD UREA NITROGEN 10 MG/DL (7-18); CALCIUM 8.5 MG/DL (8.5-10.1); CHLORIDE 111 MMOL/L (99-107); CREATININE 0.83 MG/DL (0.60-1.10); GLUCOSE 100 MG/DL (70-104); POTASSIUM 3.4 MMOL/L (3.5-5.1); SODIUM 145 MMOL/L (135-145); TOTAL CARBON DIOXIDE 25.5 MMOL/L (24-32); TOTAL PROTEIN 6.5 G/DL (6.4-8.2); eGFR > 90 ML/MIN
[2021-09-11] MEDS: nitroGLYCERIN 0.4mg/hour patch TD SCH (08:00)
[2021-09-11] MEDS: heparin, porcine 5000 units/ml vial SQ SCH ×2 (08:00→20:00)
[2021-09-11] MEDS: ticagrelor 90mg tablet PO SCH ×2 (08:00→20:22)
[2021-09-11] MEDS: BEMPEDOIC ACID 180 MG PO SCH (08:00)
[2021-09-11] MEDS: buprenorphine/naloxone 2-0.5mg sublingual tablet SL SCH ×3 (08:00→21:00)
[2021-09-11] MEDS: HYDROchlorothiazide 12.5mg capsule PO SCH (08:28)
[2021-09-11] MEDS: ezetimibe 10mg tablet PO SCH (08:28)
[2021-09-11] MEDS: docusate sod 100mg capsule PO SCH ×2 (08:29→20:22)
[2021-09-11] MEDS: metoprolol tartrate 25mg tablet PO SCH ×2 (08:31→20:24)
[2021-09-11] MEDS: pantoprazole 40 MG vial IV SCH ×2 (09:40→20:20)
[2021-09-11] MEDS: isosorbide mononitrate 30mg tab.SR.24H PO SCH (09:42)
--- NOTE | 2021-09-11 11:00 | NUR ---
Malnutrition consult: Pt reports 14-23 lb wt loss with decreased appetite per malnutrition risk screen with RN. Pt with scaled wt h/o 81.4-84.5 kg, current standing scaled wt is 84.5 kg, no apparent wt loss. Pt on a clear liquid diet documented with 100% PO intake first meal. No documented decrease in muscle strength or edema. Per H&P pt appears well developed well nourished. Pt currently lacks a minimum of two criteria for malnutrition. Will continue to follow. Addendum: 09/11/21 at [address] Amended: Links added.
[2021-09-11] MEDS: dextrose 5%-1/2 normal saline 1,000 ML IV SCH ×2 (12:34→20:31)
--- NOTE | 2021-09-11 12:44 | NUR ---
Per phone call with Dr Stacy KRAUS NOW, he will schedule endoscopy later today.
[2021-09-11] MEDS ORDERED: fentaNYL/PF 50MCG/1 ML 2ML syringe ONE (15:24)
[2021-09-11] MEDS ORDERED: MIDAZolam 1 MG/ML 5ML VIAL ONE (15:24)
[2021-09-11] MEDS ORDERED: LIDOcaine 1% (10mg/ml) 2ml vial ONE (15:25)
[2021-09-11] MEDS ORDERED: LIDOcaine Viscous 15ml cup ONE (15:25)
[2021-09-11] MEDS: metoclopramide 5 mg/ml inj IV SCH ×2 (17:07→20:20)
--- NOTE | 2021-09-11 18:14 | NUR ---
Problems reprioritized. Patient report given, questions answered & plan of care reviewed with KAY Brooks.
--- NOTE | 2021-09-11 19:10 | NUR ---
Patient in room PCU 3028. I have received report from JADEN VILLANUEVA and had the opportunity to ask questions and assume patient care.
[2021-09-11] MEDS: lisinopril 20mg tablet PO SCH (20:21)
[2021-09-11] MEDS: famotidine 20mg tablet PO SCH (20:22)
[2021-09-11] MEDS: HYDROcodone/acetaminophen 10/325mg tab PO PRN (20:22)
[2021-09-12] MEDS: temazepam 15mg capsule PO PRN (01:19)
[2021-09-12] MEDS: HYDROcodone/acetaminophen 10/325mg tab PO PRN (01:19)
[2021-09-12] MEDS: ondansetron/PF 4mg/2ml inj IV PRN (03:25)
[2021-09-12] MEDS: HYDROmorphone 1 mg/ml syringe IV PRN ×2 (03:25→09:16)
[2021-09-12] MEDS: dextrose 5%-1/2 normal saline 1,000 ML IV SCH (03:36)
[2021-09-12 06:00] VITALS: BP 107/60
--- NOTE | 2021-09-12 06:26 | NUR ---
Problems reprioritized. Patient report given, questions answered & plan of care reviewed with Madiha VILLANUEVA.
--- NOTE | 2021-09-12 06:30 | NUR ---
Patient in room PCU 3028. I have received report from KAY Cleary and had the opportunity to ask questions and assume patient care.
[2021-09-12 06:50] LABS: ALANINE AMINOTRANSFERASE 30 U/L (12-78); ALBUMIN 3.2 G/DL (3.4-5.0); ALBUMIN/GLOBULIN RATIO 1.1 (1.1-1.5); ALKALINE PHOSPHATASE 51 IU/L (46-116); ANION GAP 8 (8-16); ASPARTATE AMINO TRANSFERASE 20 U/L (10-37); BILIRUBIN,TOTAL 0.3 MG/DL (0.1-1.0); BLOOD UREA NITROGEN 8 MG/DL (7-18); BUN/CREATININE RATIO 8.6 (5.4-32.0); CALCIUM 8.4 MG/DL (8.5-10.1); CHLORIDE 108 MMOL/L (99-107); CREATININE 0.93 MG/DL (0.60-1.10); GLUCOSE 95 MG/DL (70-104); SODIUM 142 MMOL/L (135-145); TOTAL CARBON DIOXIDE 25.9 MMOL/L (24-32); TOTAL PROTEIN 6.1 G/DL (6.4-8.2); eGFR 86 ML/MIN
[2021-09-12 06:52] LABS: POTASSIUM 2.8 MMOL/L (3.5-5.1)
[2021-09-12 06:53] LABS: BASOPHILS # (AUTO) 0.1 X10'3 (0-0.2); BASOPHILS % (AUTO) 0.8 % (0-1); EOSINOPHILS # (AUTO) 0.2 X10'3 (0-0.9); HEMATOCRIT 25.9 % (42.0-52.0); HEMOGLOBIN 9.1 g/dl (14.0-17.9); LYMPHOCYTES # (AUTO) 1.5 X10'3 (1.1-4.8); LYMPHOCYTES % (AUTO) 23.9 % (21-51); MEAN CORPUSCULAR HEMOGLOBIN 32.1 PG (27.0-31.0); MEAN CORPUSCULAR HGB CONC 35.2 g/dL (33.0-36.5); MEAN CORPUSCULAR VOLUME 91.2 FL (78-98); MEAN PLATELET VOLUME 9.6 FL (7.4-10.4); MONOCYTES # (AUTO) 0.6 X10'3 (0-0.9); MONOCYTES % (AUTO) 9.8 % (2-12); NEUTROPHILS % (AUTO) 62.5 % (42-75); PLATELET COUNT 201 X10'3 (140-440); RED BLOOD COUNT 2.84 X10'6 (4.70-6.10); RED CELL DISTRIBUTION WIDTH 13.6 % (11.5-14.5); WHITE BLOOD COUNT 6.4 X10'3 (4.5-11.0)
--- NOTE | 2021-09-12 07:30 | NUR ---
PAGER ID: [phone] MESSAGE: [id number] Trell Pappas: critical K+ 2.8. would you like replacement protocol started? thank you. natalie [phone]
[2021-09-12] MEDS: buprenorphine/naloxone 2-0.5mg sublingual tablet SL SCH (08:00)
[2021-09-12] MEDS: nitroGLYCERIN 0.4mg/hour patch TD SCH (08:00)
[2021-09-12] MEDS: HYDROchlorothiazide 12.5mg capsule PO SCH (08:00)
[2021-09-12] MEDS: BEMPEDOIC ACID 180 MG PO SCH (08:00)
[2021-09-12] MEDS ORDERED: magnesium 4gm in 100ml NS 100 ML IV PRN (08:05)
[2021-09-12] MEDS ORDERED: potassium Cl 40MEQ/1/2NS 520ml 520 ML IV PRN (08:05)
[2021-09-12] MEDS ORDERED: magnesium 2GM in 50ml NS 50 ML IV PRN (08:05)
[2021-09-12] MEDS ORDERED: magnesium Cl slow-release 64mg tablet PO PRN (08:05)
[2021-09-12] MEDS ORDERED: potassium Cl 20 mEq SR tablet PO PRN ×2 (08:05)
[2021-09-12] MEDS: pantoprazole 40 MG vial IV SCH (08:45)
[2021-09-12] MEDS: metoclopramide 5 mg/ml inj IV SCH (08:45)
[2021-09-12] MEDS: heparin, porcine 5000 units/ml vial SQ SCH (08:46)
[2021-09-12] MEDS: docusate sod 100mg capsule PO SCH (08:48)
[2021-09-12] MEDS: ticagrelor 90mg tablet PO SCH (08:49)
[2021-09-12] MEDS: isosorbide mononitrate 30mg tab.SR.24H PO SCH (08:53)
[2021-09-12] MEDS: ezetimibe 10mg tablet PO SCH (08:54)
[2021-09-12 08:58] VITALS: BP_SYST 137
[2021-09-12] MEDS: metoprolol tartrate 25mg tablet PO SCH (08:58)
[2021-09-12] MEDS ORDERED: ONDA4TAB6 PO (10:05)
[2021-09-12] MEDS ORDERED: HYDR-3965 PO (10:05)
[2021-09-12] MEDS ORDERED: PANT-47 PO (10:05)
[2021-09-12] MEDS ORDERED: ISOS30TA84 PO (10:05)
--- NOTE | 2021-09-12 10:44 | NUR ---
patient cleared for DC. Discussed with that K+ replacement has not been all the way completed, he said that was ok.
--- NOTE | 2021-09-12 11:30 | NUR ---
Patient stable and appropriate for discharge home with . IV removed, groundwater monitoring technician removed, all belongings taken from room. All discharge instructions and education given and reviewed with patient and . All questions answered. New prescriptions transmitted to preferred pharmacy.
--- NOTE | 2021-09-12 11:30 | NUR ---
Student documentation: I have reviewed and agree with all interventions, assessments performed and documented by SN Lyndsey. Student Medication Administration: For this medication-pass time frame, all medication were reviewed, dispensed, administered and documented per hospital policy by SN Lyndsey.
[2021-09-12] MEDS ORDERED: K and/or MAG REPLACEMENT MC SCH (20:00)
== END 2021-09-12 11:30 | disposition home or self-care (01) | DRG 392 ==
LOC: ER 15:50 → ED HOLD 09-10 00:07 → PCU 3S 09-10 17:19
PROVIDERS: ADMIT Family Medicine; ATTEND Internal Medicine
PROC: B4201ZZ Computerized Tomography (CT Scan) of Abdominal Aorta using Low Osmolar Contrast (ICD-10-PCS; 2021-09-10)
PROC: B4241ZZ Computerized Tomography (CT Scan) of Superior Mesenteric Artery using Low Osmolar Contrast (ICD-10-PCS; 2021-09-10)
PROC: B4281ZZ Computerized Tomography (CT Scan) of Bilateral Renal Arteries using Low Osmolar Contrast (ICD-10-PCS; 2021-09-10)
PROC: B42C1ZZ Computerized Tomography (CT Scan) of Pelvic Arteries using Low Osmolar Contrast (ICD-10-PCS; 2021-09-10)
PROC: B42H1ZZ Computerized Tomography (CT Scan) of Bilateral Lower Extremity Arteries using Low Osmolar Contrast (ICD-10-PCS; 2021-09-10)
PROC: B4211ZZ Computerized Tomography (CT Scan) of Celiac Artery using Low Osmolar Contrast (ICD-10-PCS; 2021-09-10)
PROC: 4A02XM4 Measurement of Cardiac Total Activity, External Approach (ICD-10-PCS; 2021-09-10)
PROC: 3E073KZ Introduction of Other Diagnostic Substance into Coronary Artery, Percutaneous Approach (ICD-10-PCS; 2021-09-10)
PROC: 0DB28ZX Excision of Middle Esophagus, Via Natural or Artificial Opening Endoscopic, Diagnostic (ICD-10-PCS; principal; 2021-09-11)
PROC: 0DB78ZX Excision of Stomach, Pylorus, Via Natural or Artificial Opening Endoscopic, Diagnostic (ICD-10-PCS; 2021-09-11)
DX: K20.0 Eosinophilic esophagitis (principal); K50.90 Crohn's disease, unspecified, without complications; I50.30 Unspecified diastolic (congestive) heart failure; I25.119 Atherosclerotic heart disease of native coronary artery with unspecified angina pectoris; E78.00 Pure hypercholesterolemia, unspecified; I11.0 Hypertensive heart disease with heart failure; E78.5 Hyperlipidemia, unspecified; G89.4 Chronic pain syndrome; F17.220 Nicotine dependence, chewing tobacco, uncomplicated; E87.6 Hypokalemia; D64.9 Anemia, unspecified; N21.0 Calculus in bladder; Z88.8 Allergy status to other drugs, medicaments and biological substances; Z79.899 Other long term (current) drug therapy; Z79.82 Long term (current) use of aspirin; I25.2 Old myocardial infarction; Z95.5 Presence of coronary angioplasty implant and graft; Z87.19 Personal history of other diseases of the digestive system; Z82.49 Family history of ischemic heart disease and other diseases of the circulatory system; Z71.6 Tobacco abuse counseling; Z79.891 Long term (current) use of opiate analgesic; Z79.02 Long term (current) use of antithrombotics/antiplatelets; Z95.1 Presence of aortocoronary bypass graft
CPT/HCPCS: 36415; 43239; 71045; 74174; 74176; 78452; 80053; 80305; 81003; 83036; 83605; 83690; 83735; 83880; 84100; 84443; 84484; 85025; 85379; 85730; 87040; 93005; 93017; 93306; 99152; 99285; A4620; A9500; C9113; G0378; J0280; J1170; J1644; J2001; J2250; J2270; J2405; J2765; J2785; J3010; J7030; J7040; Q0163; Q9967

== ENCOUNTER 2023-03-30 15:57 | Emergency (ER) | payer BC, MEDICAID ==
[~2023-03-30] VITALS: Ht 172.7 cm; Wt 80.0 kg
[~2023-03-30 15:57] MED LIST changes: -ASPI81TA53 PO; +BUPR1TAB45 SL; +FAMO40TA58 PO; +HYDR12.55 PO; +ISOS30TA84 PO; -LOP12.5T PO; +ONDA4TAB6 PO; -OXYC-150 PO; +PANT-47 PO
[2023-03-30 16:19] LABS: BASOPHILS # (AUTO) 0.1 X10'3 (0-0.2); BASOPHILS % (AUTO) 1.1 % (0-1); EOSINOPHILS # (AUTO) 0.5 X10'3 (0-0.9); EOSINOPHILS % (AUTO) 5.3 % (0-6); HEMATOCRIT 35.9 % (42.0-52.0); HEMOGLOBIN 12.3 g/dl (14.0-17.9); LYMPHOCYTES # (AUTO) 2.6 X10'3 (1.1-4.8); LYMPHOCYTES % (AUTO) 28.7 % (21-51); MEAN CORPUSCULAR HEMOGLOBIN 31.2 PG (27.0-31.0); MEAN CORPUSCULAR HGB CONC 34.3 g/dL (33.0-36.5); MEAN CORPUSCULAR VOLUME 90.9 FL (78-98); MEAN PLATELET VOLUME 9.1 FL (7.4-10.4); MONOCYTES % (AUTO) 10.9 % (2-12); NEUTROPHILS # (AUTO) 4.9 X10'3 (1.8-7.7); PLATELET COUNT 238 X10'3 (140-440); RED BLOOD COUNT 3.95 X10'6 (4.70-6.10); RED CELL DISTRIBUTION WIDTH 14.4 % (11.5-14.5); WHITE BLOOD COUNT 9.1 X10'3 (4.5-11.0)
[2023-03-30 16:34] LABS: ALANINE AMINOTRANSFERASE 40 U/L (12-78); ALBUMIN 4.3 G/DL (3.4-5.0); ALBUMIN/GLOBULIN RATIO 1.2 (1.1-1.5); ALKALINE PHOSPHATASE 121 IU/L (46-116); ANION GAP 8 (8-16); ASPARTATE AMINO TRANSFERASE 19 U/L (10-37); BILIRUBIN,TOTAL 0.2 MG/DL (0.1-1.0); BLOOD UREA NITROGEN 20 MG/DL (7-18); BUN/CREATININE RATIO 16.4 (10.0-20.0); CALCIUM 9.6 MG/DL (8.5-10.1); CHLORIDE 105 MMOL/L (99-107); CREATININE 1.22 MG/DL (0.60-1.10); GLUCOSE 79 MG/DL (70-104); POTASSIUM 4.3 MMOL/L (3.5-5.1); SODIUM 140 MMOL/L (135-145); TOTAL CARBON DIOXIDE 27.2 MMOL/L (24-32); eGFR 62 ML/MIN
[2023-03-30 17:32] LABS: CLARITY,URINE CLEAR (Clear); COLOR,URINE YELLOW (Yellow); GLUCOSE, URINE NEGATIVE (Neg); KETONES,URINE NEGATIVE (Neg); LEUKOCYTE ESTERASE ,URINE NEGATIVE (Neg); NITRITES, URINE NEGATIVE (Neg); OCCULT BLOOD,URINE NEGATIVE (Neg); PH,URINE 5.5 (4.8-8.0); PROTEIN,URINE NEGATIVE (Neg); UROBILINOGEN,URINE 0.2 E.U/dL (0.2-1.0)
[2023-03-30 17:35] LABS: UA COLLECTION TYPE VOIDED
[2023-03-30] MEDS ORDERED: ketorolac trometh. 30mg/ml inj. IV ONE (17:45)
--- NOTE | 2023-03-30 18:13 | NUR ---
Patient refused the ordered toradol for pain. He says to me" I dont want it!" Patient was obviously upset when I got back to his room. Patient was very upset after she has talked to ANDRESSA Stockton. Patient requested to have the seond troponin done so I drawn the blood sample from his peripheral IV catheter.
--- NOTE | 2023-03-30 18:33 | NUR ---
assumed care form fadumo richey rn.
[2023-03-30 19:01] VITALS: BP 138/92
== END 2023-03-30 19:02 | disposition home or self-care (01) ==
LOC: ER 15:58
DX: I24.9 Acute ischemic heart disease, unspecified (principal); R07.89 Other chest pain; R61 Generalized hyperhidrosis; M54.50 Low back pain, unspecified; I10 Essential (primary) hypertension; Z88.5 Allergy status to narcotic agent; Z88.8 Allergy status to other drugs, medicaments and biological substances
CPT/HCPCS: 36415; 71045; 80053; 81003; 83880; 84484; 85025; 85379; 93005; 99285